=== PATIENT | female | born 1970 | race Caucasian/White ===

== ENCOUNTER 2021-01-06 12:14 | Inpatient (IN) ==
[2021-01-06] MEDS ORDERED: SODIUM CHLORIDE 0.9% 250 ML IV PRN ×2 (12:35→13:25)
[2021-01-06 12:45] LABS: Basophils # (auto) 0.02 K/uL (0-0.2); Basophils % (auto) 0.2 %; Eosinophils # (auto) 0.22 K/uL (0-0.5); Eosinophils % (auto) 1.7 %; Hematocrit (blood only) 37.4 % (37-47); Hemoglobin 12.2 g/dL (12.0-16.0); Immature Granulocytes # (auto) 0.07 K/uL (0.00-0.02); Immature Granulocytes % (auto) 0.5 %; Lymphocytes # (auto) 3.33 K/uL (1.2-3.4); Lymphocytes % (auto) 25.6 %; Mean Corpuscular Hemoglobin 29.6 pg (25-34); Mean Corpuscular Hgb Conc 32.6 g/dL (32-36); Mean Corpuscular Volume 90.8 fL (80-100); Mean Platelet Volume 9.8 fL (7.4-10.4); Monocytes # (auto) 0.86 K/uL (0.11-0.59); Monocytes % (auto) 6.6 %; Neutrophils # (auto) 8.51 K/uL (1.4-6.5); Neutrophils % (auto) 65.4 %; Platelet Count 314 K/uL (130-400); RDW Coefficient of Variation 14.1 % (11.5-14.5); RDW Standard Deviation 46.6 fL (36.4-46.3); Red Blood Count 4.12 M/uL (4.2-5.4); White Blood Count 13.01 K/uL (4.8-10.8)
[2021-01-06 12:46] LABS: iSTAT Creatinine 0.6 mg/dl (0.6-1.3); iSTAT Hemoglobin 12.2 g/dl (12.0-16.0); iSTAT Ionized Calcium 1.16 mmol/l (1.12-1.32); iSTAT Potassium 3.7 mmol/L (3.3-5.0)
--- NOTE | 2021-01-06 13:01 | Emergency Department Note ---
History of Present Illness General Chief complaint: GI Assessment Stated complaint: BLOOD IN STOOL Source: patient and family History of Present Illness Provider complaint: Rectal bleeding Onset (ago): hour(s) Location: abdomen Severity: moderate Pain Consistency: + intermittent Maximum Pain Intensity: 0 Quality: + other (Bright red stool) Relieved By: + none Associated symptoms: + weakness; no chest pain, no cough, no fever/chills, no headaches, no nausea/vomiting and no shortness of breath This is a 50-year-old female who presents with rectal bleeding starting approximately an hour and a half prior to arrival. She had an episode of rectal bleeding of a few ounces. She stated that it was bright red. She stated her stool has been normal color. She denies any melanotic stools. About half hour later she had another episode of rectal bleeding and so they were headed to [facility] for evaluation. Her came here instead as she did not look well. In triage her blood pressure was in the 50s and so she was immediately brought back to the trauma bay. The patient only complains of some fatigue. She denies any fever, chest pain, shortness of breath, vomiting, diarrhea or hematuria. She has had no cough or cold symptoms or known exposure to COVID-19. She did have surgery at [facility] and was discharged from the hospital this past Friday. She stated that she had a double hernia repair in the right inguinal region. She also had a colonoscopy several weeks ago which showed polyps. She did have some mild rectal spotting prior to the colonoscopy. The colonoscopy was a routine test because 2 years ago she had polyps that were removed from her colon. Her aunt has colon cancer. She denies having any abdominal pain today but her stated that earlier she complained of pain to the left lower quadrant. She does state that she had a prior history of diverticulosis. She denies using blood thinners other than a baby aspirin daily. She has been using ibuprofen for pain control after her hernia surgery. She did use 1 today. Home Medications Medication Instructions Recorded Confirmed Type aspirin 81 mg tablet,delayed 81 mg PO DAILY tab 04/13/19 01/06/21 History release cyanocobalamin (vitamin B-12) 1,000 mcg IM MONTHLY ml 04/13/19 01/06/21 History 1,000 mcg/mL injection solution cranberry 1,000 mg PO QAM 01/06/21 01/06/21 History ibuprofen [Motrin] 600 mg PO Q6H PRN 01/06/21 01/06/21 History levothyroxine 137 mcg PO DAILY 01/06/21 01/06/21 History tramadol 50 mg PO DIRECTED PRN 01/06/21 01/06/21 History Allergies Allergy/AdvReac Type Severity Reaction Status Date / Time cefuroxime [From Ceftin] Allergy Hives Verified 01/06/21 14:44 Iodinated Contrast Media Allergy Foot Verified 01/06/21 14:44 [Iodinated Contrast- Oral swelling and IV Dye] levothyroxine AdvReac Unknown NEEDS Verified 01/06/21 14:44 BRAND NAME Past Med/Surg History Medical History Colon polyps Mariella's thyroiditis Papillary carcinoma of thyroid Surgical History History of inguinal hernia repair Social History Smoking Status: Current every day smoker Preferred Language: Finnish Feels Safe at Home: Yes Review of Systems See HPI for pertinent positives & negatives. and A total of 10 systems reviewed and were otherwise negative Physical Exam Vital Signs Vital Signs - 24 hr 01/06/21 12:16 01/06/21 12:38 01/06/21 12:39 Temperature 35.3 C L Temperature Source Temporal Artery Scan Pulse Rate 73 77 Pulse Rate from SpO2 Sensor 77 Pulse Rhythm Regular Pulse Strength Normal Respiratory Rate 20 16 Respiratory Effort / Characteristics Non-Labored Respiratory Depth Normal Respiratory Pattern Regular Blood Pressure 53/37 L 103/51 L Blood Pressure Mean 42 68 Blood Pressure Position Sitting Pulse Oximetry 93 92 92 Oxygen Delivery Method Room Air Room Air Oxygen Flow Rate 3 Sepsis Recent Fever Within 48 Hours No Sepsis New/Unexplained Change in Mental Status N/A Sepsis Action Taken by Nursing No Action Required 01/06/21 12:43 01/06/21 12:45 01/06/21 13:14 Temperature 37 C Temperature Source Rectal Pulse Rate 73 73 Pulse Rate from SpO2 Sensor 73 73 Pulse Rhythm Pulse Strength Respiratory Rate 16 17 Respiratory Effort / Characteristics Respiratory Depth Respiratory Pattern Blood Pressure 111/51 L 101/60 Blood Pressure Mean 71 73 Blood Pressure Position Pulse Oximetry 94 97 Oxygen Delivery Method Oxygen Flow Rate Sepsis Recent Fever Within 48 Hours Sepsis New/Unexplained Change in Mental Status Sepsis Action Taken by Nursing 01/06/21 13:15 01/06/21 13:30 01/06/21 13:45 Temperature Temperature Source Pulse Rate 79 73 74 Pulse Rate from SpO2 Sensor 78 73 77 Pulse Rhythm Pulse Strength Respiratory Rate 19 15 18 Respiratory Effort / Characteristics Respiratory Depth Respiratory Pattern Blood Pressure 101/46 L 92/53 L 105/63 Blood Pressure Mean 64 66 77 Blood Pressure Position Pulse Oximetry 97 97 100 Oxygen Delivery Method Oxygen Flow Rate Sepsis Recent Fever Within 48 Hours Sepsis New/Unexplained Change in Mental Status Sepsis Action Taken by Nursing 01/06/21 13:53 01/06/21 13:54 01/06/21 14:00 Temperature 36.5 C Temperature Source Oral Pulse Rate 75 73 80 Pulse Rate from SpO2 Sensor 73 78 Pulse Rhythm Pulse Strength Respiratory Rate 16 12 18 Respiratory Effort / Characteristics Respiratory Depth Respiratory Pattern Blood Pressure 105/74 105/74 114/63 Blood Pressure Mean 84 84 80 Blood Pressure Position Pulse Oximetry 98 98 90 Oxygen Delivery Method Oxygen Flow Rate 3 Sepsis Recent Fever Within 48 Hours Sepsis New/Unexplained Change in Mental Status Sepsis Action Taken by Nursing 01/06/21 14:14 01/06/21 14:15 01/06/21 14:29 Temperature 36.6 C 36.5 C Temperature Source Oral Oral Pulse Rate 76 76 72 Pulse Rate from SpO2 Sensor 77 Pulse Rhythm Pulse Strength Respiratory Rate 16 15 16 Respiratory Effort / Characteristics Respiratory Depth Respiratory Pattern Blood Pressure 106/71 106/71 111/64 Blood Pressure Mean 82 82 79 Blood Pressure Position Pulse Oximetry 96 94 98 Oxygen Delivery Method Oxygen Flow Rate 3 3 Sepsis Recent Fever Within 48 Hours Sepsis New/Unexplained Change in Mental Status Sepsis Action Taken by Nursing 01/06/21 14:30 01/06/21 14:45 01/06/21 14:59 Temperature 36.7 C Temperature Source Oral Pulse Rate 73 78 77 Pulse Rate from SpO2 Sensor 73 75 Pulse Rhythm Pulse Strength Respiratory Rate 15 17 16 Respiratory Effort / Characteristics Respiratory Depth Respiratory Pattern Blood Pressure 111/64 106/71 105/55 L Blood Pressure Mean 79 82 71 Blood Pressure Position Pulse Oximetry 98 92 95 Oxygen Delivery Method Oxygen Flow Rate 3 Sepsis Recent Fever Within 48 Hours Sepsis New/Unexplained Change in Mental Status Sepsis Action Taken by Nursing 01/06/21 15:59 01/06/21 16:11 01/06/21 16:27 Temperature 36.6 C 36.6 C 36.4 C L Temperature Source Oral Oral Oral Pulse Rate 82 80 80 Pulse Rate from SpO2 Sensor Pulse Rhythm Pulse Strength Respiratory Rate 16 18 16 Respiratory Effort / Characteristics Respiratory Depth Respiratory Pattern Blood Pressure 119/73 119/73 121/64 Blood Pressure Mean 88 88 83 Blood Pressure Position Pulse Oximetry 98 94 98 Oxygen Delivery Method Oxygen Flow Rate 3 3 Sepsis Recent Fever Within 48 Hours Sepsis New/Unexplained Change in Mental Status Sepsis Action Taken by Nursing 01/06/21 16:42 01/06/21 17:12 01/06/21 18:00 Temperature 36.6 C 37.2 C 36.5 C Temperature Source Oral Oral Oral Pulse Rate 80 78 76 Pulse Rate from SpO2 Sensor Pulse Rhythm Pulse Strength Respiratory Rate 16 20 16 Respiratory Effort / Characteristics Respiratory Depth Respiratory Pattern Blood Pressure 124/76 108/72 124/62 Blood Pressure Mean 92 84 82 Blood Pressure Position Pulse Oximetry 96 93 98 Oxygen Delivery Method Oxygen Flow Rate 3 3 Sepsis Recent Fever Within 48 Hours Sepsis New/Unexplained Change in Mental Status Sepsis Action Taken by Nursing Constitutional: Vital signs reviewed. Eyes: Pupils are equal round reactive to light. Conjunctiva are noninjected. ENT: Pharynx is clear without erythema or exudate. Mucous membranes are moist. Neck supple without meningeal signs. Respiratory: Clear to auscultation bilaterally. Breath sounds are equal bilaterally. Cardiovascular: Regular rate and rhythm. No rubs or gallops. GI: Soft, nondistended and nontender. Bowel sounds are present. Incision in right inguinal area intact without signs of erythema or discharge. No sig nificant tenderness in this region. Rectal: No stool is noted. There is dark blood. Musculoskeletal: No peripheral edema. No lower extremity tenderness. Integumentary: No cyanosis. or jaundice. Pale. Neurological: The patient is awake and alert. No focal deficits. Psychiatric: Normal affect. Course Administered Medications Pantoprazole Sodium 40 mg/ (Dextrose) 100 mls @ 20 mls/hr IV Q5H RENETTA Stop: 02/05/21 15:50 Last Admin: 01/06/21 16:17 Dose: 8 mg/hr, 20 mls/hr Documented by: [id number] Discontinued Medications Pantoprazole Sodium 80 mg/ (Dextrose) 120 mls @ 400 mls/hr IV NOW ONE Stop: 01/06/21 15:53 Last Infusion: 01/06/21 16:18 Dose: 0 mls/hr Documented by: [id number] Admin: 01/06/21 15:58 Dose: 400 mls/hr Documented by: [id number] Critical Care Time Critical Care Time: Yes Total Critical Care Time: 95 I have personally spent approximately 95 minutes of critical care time in the direct management of this patient. This includes bedside care, interpretation of diagnostic studies, and testing, discussion with consultants, patient, and family members, and other required patient management activities. These minutes are in excess of all separately billable procedures. Medical Decision Making Differential Diagnosis Anemia, GI bleed, polyp, diverticulosis, diverticulitis, internal hemorrhoids Medical Records Attestation: I reviewed the patient's medical records. I did perform a limited focused review of portions of the patient's old chart on the electronic medical record. The patient had a colonoscopy by Dr. Nguyen on December 12 for high risk surveillance for colon cancer. It showed a 10 mm polyp in the descending colon removed with a hot snare. Resected and retrieved. Clip was placed. Moderate diverticulosis in the sigmoid and descending colon. Internal hemorrhoids. Home Medications Current Medication List: was personally reviewed by me Laboratory Data Attestation: I reviewed the patient's lab results. Result diagrams: 01/06/21 12:26 01/06/21 12:26 Lab Results 01/06/21 01/06/21 01/06/21 Range/Units 12:26 12:26 12:26 WBC 13.01 H (4.8-10.8) K/uL RBC 4.12 L (4.2-5.4) M/uL Hgb 12.2 (12.0-16.0) g/dL POC Hgb (12.0-16.0) g/dl Hct 37.4 (37-47) % POC Hct (37-47) % MCV 90.8 (80-100) fL MCH 29.6 (25-34) pg MCHC 32.6 (32-36) g/dL RDW Std Deviation 46.6 H (36.4-46.3) fL RDW Coeff of Den 14.1 (11.5-14.5) % Plt Count 314 (130-400) K/uL MPV 9.8 (7.4-10.4) fL Immature Gran % (Auto) 0.5 % Neut % (Auto) 65.4 % Lymph % (Auto) 25.6 % Morrill % (Auto) 6.6 % Eos % (Auto) 1.7 % Baso % (Auto) 0.2 % Neut # (Auto) 8.51 H (1.4-6.5) K/uL Lymph # (Auto) 3.33 (1.2-3.4) K/uL Morrill # (Auto) 0.86 H (0.11-0.59) K/uL Eos # (Auto) 0.22 (0-0.5) K/uL Baso # (Auto) 0.02 (0-0.2) K/uL Immature Gran # (Auto) 0.07 H (0.00-0.02) K/uL PT (9.0-12.0) Seconds INR (0.9-1.1) APTT (21.0-31.0) Seconds PTT Ratio POC Sodium (135-144) mmol/L Sodium 142 (136-145) mmol/L POC Potassium (3.3-5.0) mmol/L Potassium 3.5 (3.5-5.1) mmol/L POC Chloride (101-112) mmol/L Chloride 109 H (98-107) mmol/L Carbon Dioxide 30 (21-32) mmol/L POC Total CO2 (24-31) mmol/L Anion Gap 3.0 (3-11) POC Anion Gap (16-25) mmol/L POC BUN (7-18) mg/dl BUN 8 (7-18) mg/dl Creatinine 0.62 (0.6-1.2) mg/dl POC Creatinine (0.6-1.3) mg/dl Est Cr Clr Drug Dosing 120.0 ml/min Est GFR ( Amer) 120.2 ml/min Est GFR (Non-Af Amer) 103.7 ml/min BUN/Creatinine Ratio 12.6 (10-20) Glucose 106 H (70-99) mg/dl POC Glucose (other) (70-99) mg/dl Lactate (0.4-2.0) mmol/L Calcium 8.0 L (8.5-10.1) mg/dl POC Ioniz Calcium Trista (1.12-1.32) mmol/l Total Bilirubin 0.6 (0.2-1) mg/dl AST 11 L (15-37) U/L ALT 16 (12-78) U/L Alkaline Phosphatase 57 (45-117) U/L Troponin I < 0.015 (0-0.045) ng/ml Total Protein 6.5 (6.4-8.2) gm/dl Albumin 2.9 L (3.4-5.0) gm/dl Globulin 3.6 (2.5-4.0) gm/dl Albumin/Globulin Ratio 0.8 L (0.9-2) Lipase 62 L (73-393) U/L POC Stool Occult Blood (Negative) COVID-19 Eval Order SARS-CoV-2 (PCR) (Negative) Blood Type O Positive Blood Type Recheck Antibody Screen NEGATIVE Crossmatch See Detail 01/06/21 01/06/21 01/06/21 Range/Units 12:26 12:33 12:44 WBC (4.8-10.8) K/uL RBC (4.2-5.4) M/uL Hgb (12.0-16.0) g/dL POC Hgb 12.2 (12.0-16.0) g/dl Hct (37-47) % POC Hct 36 L (37-47) % MCV (80-100) fL MCH (25-34) pg MCHC (32-36) g/dL RDW Std Deviation (36.4-46.3) fL RDW Coeff of Den (11.5-14.5) % Plt Count (130-400) K/uL MPV (7.4-10.4) fL Immature Gran % (Auto) % Neut % (Auto) % Lymph % (Auto) % Morrill % (Auto) % Eos % (Auto) % Baso % (Auto) % Neut # (Auto) (1.4-6.5) K/uL Lymph # (Auto) (1.2-3.4) K/uL Morrill # (Auto) (0.11-0.59) K/uL Eos # (Auto) (0-0.5) K/uL Baso # (Auto) (0-0.2) K/uL Immature Gran # (Auto) (0.00-0.02) K/uL PT 9.8 (9.0-12.0) Seconds INR 1.0 (0.9-1.1) APTT 24.1 (21.0-31.0) Seconds PTT Ratio 0.9 POC Sodium 142 (135-144) mmol/L Sodium (136-145) mmol/L POC Potassium 3.7 (3.3-5.0) mmol/L Potassium (3.5-5.1) mmol/L POC Chloride 101 (101-112) mmol/L Chloride (98-107) mmol/L Carbon Dioxide (21-32) mmol/L POC Total CO2 28 (24-31) mmol/L Anion Gap (3-11) POC Anion Gap 18.0 (16-25) mmol/L POC BUN 8 (7-18) mg/dl BUN (7-18) mg/dl Creatinine (0.6-1.2) mg/dl POC Creatinine 0.6 (0.6-1.3) mg/dl Est Cr Clr Drug Dosing ml/min Est GFR ( Amer) ml/min Est GFR (Non-Af Amer) ml/min BUN/Creatinine Ratio (10-20) Glucose (70-99) mg/dl POC Glucose (other) 107 H (70-99) mg/dl Lactate (0.4-2.0) mmol/L Calcium (8.5-10.1) mg/dl POC Ioniz Calcium Trista 1.16 (1.12-1.32) mmol/l Total Bilirubin (0.2-1) mg/dl AST (15-37) U/L ALT (12-78) U/L Alkaline Phosphatase (45-117) U/L Troponin I (0-0.045) ng/ml Total Protein (6.4-8.2) gm/dl Albumin (3.4-5.0) gm/dl Globulin (2.5-4.0) gm/dl Albumin/Globulin Ratio (0.9-2) Lipase (73-393) U/L POC Stool Occult Blood (Negative) COVID-19 Eval Order Covid19 at [facility] SARS-CoV-2 (PCR) (Negative) Blood Type Blood Type Recheck Antibody Screen Crossmatch 01/06/21 01/06/21 01/06/21 Range/Units 12:44 13:20 13:56 WBC (4.8-10.8) K/uL RBC (4.2-5.4) M/uL Hgb (12.0-16.0) g/dL POC Hgb 10.5 L (12.0-16.0) g/dl Hct (37-47) % POC Hct 31 L (37-47) % MCV (80-100) fL MCH (25-34) pg MCHC (32-36) g/dL RDW Std Deviation (36.4-46.3) fL RDW Coeff of Den (11.5-14.5) % Plt Count (130-400) K/uL MPV (7.4-10.4) fL Immature Gran % (Auto) % Neut % (Auto) % Lymph % (Auto) % Morrill % (Auto) % Eos % (Auto) % Baso % (Auto) % Neut # (Auto) (1.4-6.5) K/uL Lymph # (Auto) (1.2-3.4) K/uL Morrill # (Auto) (0.11-0.59) K/uL Eos # (Auto) (0-0.5) K/uL Baso # (Auto) (0-0.2) K/uL Immature Gran # (Auto) (0.00-0.02) K/uL PT (9.0-12.0) Seconds INR (0.9-1.1) APTT (21.0-31.0) Seconds PTT Ratio POC Sodium 142 (135-144) mmol/L Sodium (136-145) mmol/L POC Potassium 3.6 (3.3-5.0) mmol/L Potassium (3.5-5.1) mmol/L POC Chloride 102 (101-112) mmol/L Chloride (98-107) mmol/L Carbon Dioxide (21-32) mmol/L POC Total CO2 26 (24-31) mmol/L Anion Gap (3-11) POC Anion Gap 19.0 (16-25) mmol/L POC BUN 7 (7-18) mg/dl BUN (7-18) mg/dl Creatinine (0.6-1.2) mg/dl POC Creatinine 0.6 (0.6-1.3) mg/dl Est Cr Clr Drug Dosing ml/min Est GFR ( Amer) ml/min Est GFR (Non-Af Amer) ml/min BUN/Creatinine Ratio (10-20) Glucose (70-99) mg/dl POC Glucose (other) 96 (70-99) mg/dl Lactate (0.4-2.0) mmol/L Calcium (8.5-10.1) mg/dl POC Ioniz Calcium Trista 1.02 L (1.12-1.32) mmol/l Total Bilirubin (0.2-1) mg/dl AST (15-37) U/L ALT (12-78) U/L Alkaline Phosphatase (45-117) U/L Troponin I (0-0.045) ng/ml Total Protein (6.4-8.2) gm/dl Albumin (3.4-5.0) gm/dl Globulin (2.5-4.0) gm/dl Albumin/Globulin Ratio (0.9-2) Lipase (73-393) U/L POC Stool Occult Blood (Negative) COVID-19 Eval Order SARS-CoV-2 (PCR) NEGATIVE (Negative) Blood Type Blood Type Recheck O Positive Antibody Screen Crossmatch 01/06/21 01/06/21 Range/Units 17:48 Unknown WBC (4.8-10.8) K/uL RBC (4.2-5.4) M/uL Hgb (12.0-16.0) g/dL POC Hgb (12.0-16.0) g/dl Hct (37-47) % POC Hct (37-47) % MCV (80-100) fL MCH (25-34) pg MCHC (32-36) g/dL RDW Std Deviation (36.4-46.3) fL RDW Coeff of Den (11.5-14.5) % Plt Count (130-400) K/uL MPV (7.4-10.4) fL Immature Gran % (Auto) % Neut % (Auto) % Lymph % (Auto) % Morrill % (Auto) % Eos % (Auto) % Baso % (Auto) % Neut # (Auto) (1.4-6.5) K/uL Lymph # (Auto) (1.2-3.4) K/uL Morrill # (Auto) (0.11-0.59) K/uL Eos # (Auto) (0-0.5) K/uL Baso # (Auto) (0-0.2) K/uL Immature Gran # (Auto) (0.00-0.02) K/uL PT (9.0-12.0) Seconds INR (0.9-1.1) APTT (21.0-31.0) Seconds PTT Ratio POC Sodium (135-144) mmol/L Sodium (136-145) mmol/L POC Potassium (3.3-5.0) mmol/L Potassium (3.5-5.1) mmol/L POC Chloride (101-112) mmol/L Chloride (98-107) mmol/L Carbon Dioxide (21-32) mmol/L POC Total CO2 (24-31) mmol/L Anion Gap (3-11) POC Anion Gap (16-25) mmol/L POC BUN (7-18) mg/dl BUN (7-18) mg/dl Creatinine (0.6-1.2) mg/dl POC Creatinine (0.6-1.3) mg/dl Est Cr Clr Drug Dosing ml/min Est GFR ( Amer) ml/min Est GFR (Non-Af Amer) ml/min BUN/Creatinine Ratio (10-20) Glucose (70-99) mg/dl POC Glucose (other) (70-99) mg/dl Lactate 0.8 (0.4-2.0) mmol/L Calcium (8.5-10.1) mg/dl POC Ioniz Calcium Trista (1.12-1.32) mmol/l Total Bilirubin (0.2-1) mg/dl AST (15-37) U/L ALT (12-78) U/L Alkaline Phosphatase (45-117) U/L Troponin I (0-0.045) ng/ml Total Protein (6.4-8.2) gm/dl Albumin (3.4-5.0) gm/dl Globulin (2.5-4.0) gm/dl Albumin/Globulin Ratio (0.9-2) Lipase (73-393) U/L POC Stool Occult Blood Positive A (Negative) COVID-19 Eval Order SARS-CoV-2 (PCR) (Negative) Blood Type Blood Type Recheck Antibody Screen Crossmatch Imaging Data Radiologist's Impression: Abdomen/Pelvis CT 06/05/21 12:[address] WITHOUT CONTRAST CT DOSE: 787.52 mGy.cm HISTORY: Bloody stool. Left-sided abdominal pain. TECHNIQUE: Multiaxial CT images of the abdomen and pelvis were performed without contrast. A dose lowering technique was utilized adhering to the principles of ALARA. COMPARISON STUDY: None. FINDINGS: There are 2 adjacent focal collections of gas and soft tissue edema/fluid within the right lower quadrant extraperitoneal space proximal to the site of right inguinal hernia repair. These are best seen on images 367 and 375. These measure approximately 3.2 cm. Both of these gas and soft tissue collections abut the undersurface of the cecum and adjacent distal ileal loops. Therefore, these could be secondary to the postoperative change from the recent right inguinal hernia repair. However, developing abscesses or less likely enterocutaneous fistulas or microperforation with the adjacent bowel loops could also have a similar appearance. Consider one month abdomen and pelvis CT follow- up to ensure resolution. There is a small amount of fluid, gas, and fat stranding within the subcutaneous right inguinal region also suggesting postoperative change from the recent hernia repair. Normal appendix. Mild inflammatory change associated with a single diverticulum within the hepatic flexure of the colon on image 118 consistent with a mild acute diverticulitis. There is focal mild colonic wall thickening at this location. No perforation or abscess at this location. Multiple additional colonic diverticula are identified. The bladder is unremarkable. The uterus is surgically absent. No dilated loops of bowel to suggest an obstruction. A few small fat-containing midline ventral hernias are noted. No retroperitoneal lymphadenopathy. Normal caliber abdominal aorta. 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 No renal stones or hydronephrosis. No suspicious lytic or blastic osseous lesions. The unenhanced liver, gallbladder, spleen, adrenal glands, and pancreas unremarkable. No renal stones or hydronephrosis. Linear density at the right lower lobe consistent with subsegmental atelectasis. There is a 5 mm subpleural nodule within the left lower lobe on image 31. Small patchy groundglass densities within the base of the left lower lobe suggesting a resolving pneumonitis. This could be secondary to aspiration. IMPRESSION: 1. Mild acute diverticulitis at the hepatic flexure of the colon. No perforation or abscess. 2. There are 2 adjacent focal collections of gas and soft tissue edema/fluid within the right lower quadrant extraperitoneal space proximal to the site of right inguinal hernia repair. These measure approximately 3.2 cm. Both of these gas and soft tissue collections abut the undersurface of the cecum and adjacent distal ileal loops. These favor postoperative change from the recent right inguinal hernia repair. However, developing abscesses or less likely enterocutaneous fistulas or microperforation with the adjacent bowel loops could also have a similar appearance. Consider one month abdomen and pelvis CT follow- up to ensure resolution. 3. There is a small amount of fluid, gas, and fat stranding within the subcutaneous right inguinal region also suggesting postoperative change from the recent hernia repair. 4. A 5 mm indeterminate pulmonary nodule within the left lower lobe. Please refer to the chart below for recommended follow-up. 5. Small patchy groundglass densities within the base of the left lower lobe suggesting a resolving pneumonitis. This could be secondary to aspiration. Please refer to below summary of Fleischner criteria recommendations for follow- up of incidental CT nodules (Ravin Sheldon, Guidelines for management of small pulmonary nodules detected on CT scans: A statement from the Fleischner Society, Radiology 237: [phone].) SOLID NODULES Solitary nodule size: <6 mm * Low risk patients: no follow-up needed * high risk patients: optional CT at 12 months Solitary nodule size: 6-8 mm * Low risk patients: follow-up at 6-12 months, then consider further follow-up at 18-24 months * high risk patients: initial follow-up CT at 6-12 months and then at 18-24 months if no change Solitary nodule size: >8 mm * either low or high risk patients - consider follow-up CT at 3 months, and/or CT-PET, and/or biopsy Multiple nodules size: <6 mm * Low risk patients: no routine follow-up * high risk patients: optional CT at 12 months Multiple nodules size: 6-8 mm * Low risk patients: follow-up at 3-6 months, then consider further follow-up at 18-24 months * high risk patients: follow-up at 3-6 months, then at 18-24 months if no change Multiple nodules size: >8 mm * Low risk patients: follow-up at 3-6 months, then consider further follow-up at 18-24 months * high risk patients: follow-up at 3-6 months, then at 18-24 months if no change Note: newly detected indeterminate nodule in persons 35 years of age or older. * Low risk patients: minimal or absent history of smoking and/or other known risk factors * high risk patients: history of smoking or of other known risk factors (e.g. first degree relative with lung cancer, or exposure to asbestos, radon, uranium) * if a nodule up to 8 mm is partly solid or is ground glass further follow-up is required after 24 months to exclude possible slow growing adenocarcinoma (CHRISTINA) SUBSOLID NODULES Solitary pure ground-glass nodule * nodule size <6 mm - no CT follow-up required * nodule size >=6 mm - follow-up CT at 6-12 months, then every 2 years until 5 years Solitary part-solid nodule * nodule size <6 mm - no CT follow-up required * nodule size >=6 mm - follow-up CT at 3-6 months. If unchanged, and solid component remains <6 mm, then annual follow-up for 5 years Multiple subsolid nodules * nodule size <6 mm - follow-up CT at 3-6 months, consider further follow-up at 2 and 4 years if stable * nodule size >=6 mm - follow-up CT at 3-6 months, subsequent management based on the most suspicious nodule(s) ACT 112: Negative or not required by law. Electronically signed by: Fernando Carrion M.D. 01/06/2021 1:52 PM Chest X-Ray 01/06/21 12:35 XR chest 1V portable HISTORY: GI bleed. COMPARISON: None. FINDINGS: Cardiac silhouette is top normal in size. No focal lung consolidations to suggest pneumonia. No evidence for pulmonary edema. No pleural effusions. No pneumothorax. Questionable 7 mm nodular density at the left lung apex is likely due to the overlapping scapula. Surgical clips at the thyroid bed. IMPRESSION: 1. No acute process within the chest. 2. A questionable 7 mm nodular density at the left lung apex is likely due to the overlapping scapula. Consider follow-up nonemergent PA and lateral views of the chest for further evaluation. ACT 112: Negative or not required by law. Electronically signed by: Fernando Carrion M.D. 01/06/2021 2:25 PM ECG Data Attestation: I personally reviewed and interpreted this ECG as follows: Indication: + other (Hypotension) Rate (beats per minute): 81 Rhythm: + normal sinus ECG ST segments: + Nonspecific ST abnormalities ECG Findings: no PVCs MDM Narrative I was called in emergently to see this patient by the nurse. Apparently she was hypotensive in triage with a systolic blood pressure in the 50s. I did evaluate the patient as noted above. She is presenting with 2 episodes of rectal bleeding today. She also had some left-sided abdominal pain which is now res olved. IV access was established. I did place an order for continuous cardiac monitoring. The monitor showed normal sinus rhythm at a rate of 80 bpm. I did order and personally review the patient's 12-lead EKG as described above. She has some nonspecific ST changes without acute ischemia. I did order and personally reviewed the images of the patient's chest x-ray as described above. There is no evidence of pneumonia. I did order and review the patient's blood work as noted in the electronic medical record. I-STAT labs demonstrate a hemoglobin of 12.2. I did order a type and cross. I did obtain informed consent for blood transfusion. I did repeat a hemoglobin 40.5 minutes after the first and it dropped to 10.5. She had received only 300 cc of normal saline in the emergency department. Due to her active bleeding I did order transfusion of the crossmatched blood. She was started on blood transfusion in the ED. I did order a CT of the abdomen and pelvis. I did review the images myself as well as the radiology report as described above. She appears to have mostly postop c hanges in the right lower quadrant. She does have signs of mild diverticulitis at the hepatic flexure. I did discuss case with Dr. Salazar of gastroenterology. He recommended patient be transferred to a tertiary care center for possible IR. I did speak to Dr. Tuttle of gastroenterology at [facility]. He stated that a colonoscopy should be performed prior to IR. Also there were no medical or ICU beds available and that the patient would have to wait until a bed was availa ble. The ED was described as "compressed. I did later obtain the CT results which demonstrated mild diverticulitis to the hepatic flexure. I did speak to Dr. Salazar again. He stated that he would consult on the patient if the patient was admitted here. He stated that a colonoscopy would be more risky given the diverticulitis. I did speak to Dr. Tuttle again in the transfer center. They reiterated that no ICU or floor beds were available. Dr. Tuttle stated that a flexible sigmoidoscopy could be performed since the diverticulitis was in the hepatic flexure. The patient will be hospitalized here as she cannot be transferred to [facility] at this time. She is currently stable with a blood pressure 106/71. Heart rate 76. She is sitting upright in the bed and her color has returned. She is getting her first transfusion. The nurse stated that her blood pressure and clinical condition had improved even prior to her getting the blood. I did update the patient and her about the situation. The patient's was very upset that we were not doing a colonoscopy right away. He felt that we needed to diagnose the bleeding issue and that we were "doing nothing. "He requested that either the GI doctor come do a scope or we transfer her to [facility]. I did call back Dr. Salazar who stated that he did not feel she needed an emergent procedure. If they felt more comfortable being transferred he was agreeable. I did talk to geriatric case manager. She stated that the patient could only go to [facility] or [facility] due to her insurance. All other hospitals are out of network and would incur costs. I did call Dr. Bañuelos of GI and , who is the ICU attending, at [facility]. I did have a long discussion with them regarding patient and her care here as well as the findings on her testing. Dr. Bañuelos felt that she did not need an emergent colonoscopy and would recommend 12 to 24 hours before scoping her. She also recommended covering her with Protonix in case this is a brisk upper GI bleed and recommended upper endoscopy as well. They also stated that they were unable to take the patient in transfer as they had no ICU beds in the ED was full with over 72 patients. They were happy to put her on a wait list for transfer. I did speak to the patient and her again. They did not wish to be transferred out of network to [place]. They are agreeable to having her stay here. I did put the patient on a Protonix drip with an initial bolus. I did speak to Dr. Salazar again who recommended the patient be placed on clear liquids and antibiotics. He recommended that the inpatient team obtain an H&H at 7 PM. Should her hemoglobin still be dropping he would then scope her at that time. I did discuss these recommendations with the hospitalist team and the patient was admitted to the hospital. I did also discuss the plan with the patient and her . Her blood pressure now is 120 systolic. The patient was seen by the hospitalist team. Her blood pressure is currently 124/76. She was transferred to the floor in stable condition. Last BP in the emergency department was 124/62 with a heart rate of 76. Impression & Plan Acute GI bleeding, Diverticulitis, Anemia due to acute blood loss, Acute hypote nsion Discharge Plan Visit Data Chief Complaint: GI Assessment Stated Complaint: BLOOD IN STOOL ED Provider: Yahir Ward Discharge Problem: Acute GI bleeding, Diverticulitis, Anemia due to acute blood loss, Acute hypot ension Patient Disposition: Admitted As Inpatient Discharge Instructions Interventions: ED Discharge Assessment Last Done: 01/06/21 18:22 Forms Stand Alone Forms: My [facility] Prescriptions Prescriptions: No Action aspirin 81 mg tablet,delayed release (DR/EC) 81 mg PO DAILY RF: 0 cyanocobalamin (vitamin B-12) 1,000 mcg/mL solution 1,000 mcg IM MONTHLY RF: 0 tramadol 50 mg tablet 50 mg PO DIRECTED PRN (Reason: Pain) RF: 0 ibuprofen [Motrin] 600 mg Tablet 600 mg PO Q6H PRN (Reason: Pain) RF: 0 cranberry 500 mg Capsule 1,000 mg PO QAM RF: 0 levothyroxine 137 mcg tablet 137 mcg PO DAILY RF: 0 Referrals Referrals: Flaquito Solis MD [Primary Care Provider] -
[2021-01-06 13:04] LABS: Alanine Aminotransferase 16 U/L (12-78); Albumin Level 2.9 gm/dl (3.4-5.0); Aspartate Aminotransferase 11 U/L (15-37); BUN Creatinine Ratio 12.6 (10-20); Blood Urea Nitrogen 8 mg/dl (7-18); Carbon Dioxide 30 mmol/L (21-32); Chloride 109 mmol/L (98-107); Est GFR (African American) 120.2 ml/min; Est GFR (Non-African American) 103.7 ml/min; Glucose 106 mg/dl (70-99); Lipase 62 U/L (73-393); Potassium 3.5 mmol/L (3.5-5.1); Sodium 142 mmol/L (136-145)
[2021-01-06 13:05] LABS: Partial Thromboplastin Ratio 0.9; Partial Thromboplastin Time 24.1 Seconds (21.0-31.0); Prothrombin Time 9.8 Seconds (9.0-12.0)
[2021-01-06 13:09] LABS: Albumin Globulin Ratio 0.8 (0.9-2); Alkaline Phosphatase 57 U/L (45-117); Bilirubin,Total 0.6 mg/dl (0.2-1); Globulin 3.6 gm/dl (2.5-4.0); Total Protein 6.5 gm/dl (6.4-8.2); Troponin I < 0.015 ng/ml (0-0.045)
[2021-01-06 13:35] LABS: iSTAT Creatinine 0.6 mg/dl (0.6-1.3); iSTAT Hemoglobin 10.5 g/dl (12.0-16.0); iSTAT Ionized Calcium 1.02 mmol/l (1.12-1.32); iSTAT Potassium 3.6 mmol/L (3.3-5.0)
--- NOTE | 2021-01-06 13:54 | CT Scan Report ---
ABDOMEN AND PELVIS CT WITHOUT CONTRAST CT DOSE: 787.52 mGy.cm HISTORY: Bloody stool. Left-sided abdominal pain. TECHNIQUE: Multiaxial CT images of the abdomen and pelvis were performed without contrast. A dose lo wering technique was utilized adhering to the principles of ALARA. COMPARISON STUDY: None. FINDINGS: There are 2 adjacent focal collections of gas and soft tissue edema/fluid within the right lower quadrant extraperitoneal space proximal to the site of right inguinal hernia repair. These are best seen on images 367 and 375. These measure approximately 3.2 cm. Both of these gas and soft tissu e collections abut the undersurface of the cecum and adjacent distal ileal loops. Therefore, these co uld be secondary to the postoperative change from the recent right inguinal hernia repair. However, d eveloping abscesses or less likely enterocutaneous fistulas or microperforation with the adjacent bow el loops could also have a similar appearance. Consider one month abdomen and pelvis CT follow-up to ensure resolution. There is a small amount of fluid, gas, and fat stranding within the subcutaneous r ight inguinal region also suggesting postoperative change from the recent hernia repair. Normal appen kiya. Mild inflammatory change associated with a single diverticulum within the hepatic flexure of the colon on image 118 consistent with a mild acute diverticulitis. There is focal mild colonic wall thi ckening at this location. No perforation or abscess at this location. Multiple additional colonic div erticula are identified. The bladder is unremarkable. The uterus is surgically absent. No dilated loo ps of bowel to suggest an obstruction. A few small fat-containing midline ventral hernias are noted. No retroperitoneal lymphadenopathy. Normal caliber abdominal aorta. 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 No renal stones or hydronephrosis. No suspicious lytic o r blastic osseous lesions. The unenhanced liver, gallbladder, spleen, adrenal glands, and pancreas un remarkable. No renal stones or hydronephrosis. Linear density at the right lower lobe consistent with subsegmental atelectasis. There is a 5 mm subpleural nodule within the left lower lobe on image 31. Small patchy groundglass densities within the base of the left lower lobe suggesting a resolving pneu monitis. This could be secondary to aspiration. IMPRESSION: 1. Mild acute diverticulitis at the hepatic flexure of the colon. No perforation or abscess. 2. There are 2 adjacent focal collections of gas and soft tissue edema/fluid within the right lower q uadrant extraperitoneal space proximal to the site of right inguinal hernia repair. These measure tigre roximately 3.2 cm. Both of these gas and soft tissue collections abut the undersurface of the cecum a nd adjacent distal ileal loops. These favor postoperative change from the recent right inguinal herni a repair. However, developing abscesses or less likely enterocutaneous fistulas or microperforation w ith the adjacent bowel loops could also have a similar appearance. Consider one month abdomen and pel vis CT follow-up to ensure resolution. 3. There is a small amount of fluid, gas, and fat stranding within the subcutaneous right inguinal re gion also suggesting postoperative change from the recent hernia repair. 4. A 5 mm indeterminate pulmonary nodule within the left lower lobe. Please refer to the chart below for recommended follow-up. 5. Small patchy groundglass densities within the base of the left lower lobe suggesting a resolving p neumonitis. This could be secondary to aspiration. Please refer to below summary of Fleischner criteria recommendations for follow-up of incidental CT n odules (Ravin Sheldon, Guidelines for management of small pulmonary nodules detected on CT scans: A sta tement from the Fleischner Society, Radiology 237: [phone].) SOLID NODULES Solitary nodule size: <6 mm * Low risk patients: no follow-up needed * high risk patients: optional CT at 12 months Solitary nodule size: 6-8 mm * Low risk patients: follow-up at 6-12 months, then consider further follow-up at 18-24 months * high risk patients: initial follow-up CT at 6-12 months and then at 18-24 months if no change Solitary nodule size: >8 mm * either low or high risk patients - consider follow-up CT at 3 months, and/or CT-PET, and/or biopsy Multiple nodules size: <6 mm * Low risk patients: no routine follow-up * high risk patients: optional CT at 12 months Multiple nodules size: 6-8 mm * Low risk patients: follow-up at 3-6 months, then consider further follow-up at 18-24 months * high risk patients: follow-up at 3-6 months, then at 18-24 months if no change Multiple nodules size: >8 mm * Low risk patients: follow-up at 3-6 months, then consider further follow-up at 18-24 months * high risk patients: follow-up at 3-6 months, then at 18-24 months if no change Note: newly detected indeterminate nodule in persons 35 years of age or older. * Low risk patients: minimal or absent history of smoking and/or other known risk factors * high risk patients: history of smoking or of other known risk factors (e.g. first degree relative with lung cancer, or exposure to asbestos, radon, uranium) * if a nodule up to 8 mm is partly solid or is ground glass further follow-up is required after [address] to exclude possible slow growing adenocarcinoma (CHRISTINA) SUBSOLID NODULES Solitary pure ground-glass nodule * nodule size <6 mm - no CT follow-up required * nodule size >=6 mm - follow-up CT at 6-12 months, then every 2 years until 5 years Solitary part-solid nodule * nodule size <6 mm - no CT follow-up required * nodule size >=6 mm - follow-up CT at 3-6 months. If unchanged, and solid component remains <6 mm, then annual follow-up for 5 years Multiple subsolid nodules * nodule size <6 mm - follow-up CT at 3-6 months, consider further follow-up at 2 and 4 years if sta ble * nodule size >=6 mm - follow-up CT at 3-6 months, subsequent management based on the most suspiciou s nodule(s) ACT 112: Negative or not required by law. Electronically signed by: Fernando Carrion M.D. 01/06/2021 1:52 PM
--- NOTE | 2021-01-06 14:26 | XRay Report ---
XR chest 1V portable HISTORY: GI bleed. COMPARISON: None. FINDINGS: Cardiac silhouette is top normal in size. No focal lung consolidations to suggest pneumonia . No evidence for pulmonary edema. No pleural effusions. No pneumothorax. Questionable 7 mm nodular d ensity at the left lung apex is likely due to the overlapping scapula. Surgical clips at the thyroid bed. IMPRESSION: 1. No acute process within the chest. 2. A questionable 7 mm nodular density at the left lung apex is likely due to the overlapping scapula . Consider follow-up nonemergent PA and lateral views of the chest for further evaluation. ACT 112: Negative or not required by law. Electronically signed by: Fernando Carrion M.D. 01/06/2021 2:25 PM
--- NOTE | 2021-01-06 15:13 | History & Physical Report ---
Date of Service January 06, 2021 Assessment & Plan (1) Acute GI bleeding: -Admit to PCU, see HPI regarding attempt to transfer to tertiary care centers. -Acute bright red bloody bowel movements x1 day -Pt presented to the ER with BP of 50s/30s, received NSS 300 mL and transfused 2 units PRBCs. -BP has remained in low 100s/70s since then, monitor -Consult GI, Dr. Salazar-allow clear liquids tonight, recheck H&H at 1900, if drops then will scope tonight, otherwise plan on scope tomorrow, attempt colonoscopy but may only be able to do flexible sigmoidoscopy -Last hemoglobin of 12.2, next recheck at 1900 -PPI bolus and gtt started in the ER, possible upper GIB with hx of using motrin s/p hernia repair on 01/03. -COVID-19 neg (2) Diverticulitis: -Start IV cipro/flagyl to treat possible diverticulitis as seen on CT abd/pelvis. -Follow blood cultures -WBC = 13 k, afebrile - Check lactate (3) History of inguinal hernia repair: - S/p right inguinal hernia repair on 01/03/2021 at [facility] by Dr. Blandon - CT abd reviewed, noted questionable abscess formation, will monitor, antibiotics IV, afebrile, WBC of 13 k can be reactive from acute bleed. (4) Colon polyps: - Hx of such, removed during colonoscopy done in December 2020. - Dr. Nguyen at [facility] on 12/12/2020. She had a 10 mm polyp in the descending colon which was semipedunculated, removed. A hemostatic clip was placed successfully to prevent further bleeding after the polypectomy. There was no bleeding at the end of this procedure there were multiple small and large mouth diverticula in the sigmoid colon and descending colon. Moderate internal hemorrhoids seen on retroflexion. (5) Hypothyroidism, postablative: - S/p papillary thyroid cancer and ablation DVT ppx: - teds, no chemical anticoagulation secondary to GI bleed as above CODE: Full code Dispo: From home, likely to remain in the hospital x 1-2 days History of Present Illness Primary Care Provider: Flaquito Solis MD This is a 50 yo F with PMhx of recent right inguinal hernia repair on 01/03/2021 at [facility] by JOVANNA Jamison, status post papillary thyroid carcinoma with postoperative hypothyroidism, pernicious anemia, factor V Leiden carrier, B12 deficiency who presents to the ER with acute GI bleed. Patient with significant bright red blood per rectum and bowel movements started today. She had been having increased abdominal pain associated with the bleeding. Pt had been using tylenol and tramadol immediately after her hernia surgery this past week. After tramadol ran out, she was then given a prescription for motrin 600 mg Q6H prn for pain. Upon presentation to the ER she had a blood pressure 53/37, but this was with standing up, otherwise her blood pressure has remained 105/70. She received NSS 300 mL and is being transfused 2 units PRBCs. Heart rate has remained in the 70s. Once in the ER, her acute bleeding prompted possible transfer to [facility] for possible IR procedure. The case was discussed between the ER physician at [facility] and Dr. Tuttle at [facility] and unfortunately there is not a bed available for the patient there, and they would have requested a colonoscopy prior to an IR procedure. Patient does have diverticulitis as seen on her CT abdominal scan here at [facility], so again was asked if she could be transferred to [facility] due to unlikely ability to perform full colonoscopy, Dr. Tuttle has requested that we keep the patient in had GI attempt to perform a flexible sigmoidoscopy and stabilize the patient. [facility] was also contacted for possible transfer but they do not have any beds available either and have more than 70 people in their ER waiting room. She recently had a colonoscopy done by Dr. Nguyen at [facility] on 12/12/2020. She had a 10 mm polyp in the descending colon which was semipedunculated, removed. A hemostatic clip was placed successfully to prevent further bleeding after the polypectomy. There was no bleeding at the end of this procedure there were multiple small and large mouth diverticula in the sigmoid colon and descending colon. Moderate internal hemorrhoids seen on retroflexion. Allergies Allergy/AdvReac Type Severity Reaction Status Date / Time cefuroxime [From Ceftin] Allergy Hives Verified 01/06/21 14:44 Iodinated Contrast Media Allergy Foot Verified 01/06/21 14:44 [Iodinated Contrast- Oral swelling and IV Dye] levothyroxine AdvReac Unknown NEEDS Verified 01/06/21 14:44 BRAND NAME Home Medications Medication Instructions Recorded Confirmed Type aspirin 81 mg tablet,delayed 81 mg PO DAILY tab 04/13/19 01/06/21 History release cyanocobalamin (vitamin B-12) 1,000 mcg IM MONTHLY ml 04/13/19 01/06/21 History 1,000 mcg/mL injection solution cranberry 1,000 mg PO QAM 01/06/21 01/06/21 History ibuprofen [Motrin] 600 mg PO Q6H PRN 01/06/21 01/06/21 History levothyroxine 137 mcg PO DAILY 01/06/21 01/06/21 History tramadol 50 mg PO DIRECTED PRN 01/06/21 01/06/21 History Past Med/Surg History Medical History Colon polyps Mariella's thyroiditis Papillary carcinoma of thyroid Surgical History History of inguinal hernia repair Social History Smoking Status: Current every day smoker Cigarettes Per Day: 10; Do You Dip or Chew Tobacco: No; Tobacco Cessation Education Requested by Patient: No Hx Alcohol Use: No Hx Substance Use: No Preferred Language: [place] Korean Communication Ability: Effective Director Medical Required: No Beliefs That Will Affect Care: None Current Living Situation: Spouse Other Information That Helps Us Care for You: No Feels Safe at Home: Yes Assistive Devices: Denture - Upper Review of Systems Review of Systems: All systems reviewed & are unremarkable except as noted in HPI & below Please see attending ROS. Physical Exam Physical Exam: Please see attending PE. Constitutional: well developed, well nourished and comfortable Eyes: PERRL and reactive pupils Neck: normal visual inspection and trachea midline Respiratory: normal respiratory effort, lungs clear to auscultation Cardiovascular: Rate/Rhythm: regular rate and regular rhythm Heart Sounds: normal S1 and normal S2 Gastrointestinal (Abdomen): Inspection/Auscultation: abdomen normal to inspection and normal bowel sounds Percussion/Palpation: abdomen soft Right inguinal hernia repair site healing ok. No obvious erythema or drainage seen. Results & Data Results & Data ([facility]) Vital Signs (Past 12 Hours) Vital Signs Temp Pulse Resp BP Pulse Ox 01/06/21 14:59 36.7 C 77 16 105/55 L 95 01/06/21 14:45 78 17 106/71 92 01/06/21 14:30 73 15 111/64 98 01/06/21 14:29 36.5 C 72 16 111/64 98 01/06/21 14:15 76 15 106/71 94 01/06/21 14:14 36.6 C 76 16 106/71 96 01/06/21 14:00 80 18 114/63 90 01/06/21 13:54 73 12 105/74 98 01/06/21 13:53 36.5 C 75 16 105/74 98 01/06/21 13:45 74 18 105/63 100 01/06/21 13:30 73 15 92/53 L 97 01/06/21 13:15 79 19 101/46 L 97 01/06/21 13:14 73 17 101/60 97 01/06/21 12:45 73 16 111/51 L 94 01/06/21 12:43 37 C 01/06/21 12:39 92 01/06/21 12:38 77 16 103/51 L 92 01/06/21 12:16 35.3 C L 73 20 53/37 L 93 Diagnostic Findings Abdomen/Pelvis CT 01/06/21 12:[address] WITHOUT CONTRAST CT DOSE: 787.52 mGy.cm HISTORY: Bloody stool. Left-sided abdominal pain. TECHNIQUE: Multiaxial CT images of the abdomen and pelvis were performed without contrast. A dose lowering technique was utilized adhering to the principles of ALARA. COMPARISON STUDY: None. FINDINGS: There are 2 adjacent focal collections of gas and soft tissue edema/fluid within the right lower quadrant extraperitoneal space proximal to the site of right inguinal hernia repair. These are best seen on images 367 and 375. These measure approximately 3.2 cm. Both of these gas and soft tissue collections abut the undersurface of the cecum and adjacent distal ileal loops. Therefore, these could be secondary to the postoperative change from the recent right inguinal hernia repair. However, developing abscesses or less likely enterocutaneous fistulas or microperforation with the adjacent bowel loops could also have a similar appearance. Consider one month abdomen and pelvis CT follow-up to ensure resolution. There is a small amount of fluid, gas, and fat stranding within the subcutaneous right inguinal region also suggesting pos toperative change from the recent hernia repair. Normal appendix. Mild inflammatory change associated with a single diverticulum within the hepatic flexure of the colon on image 118 consistent with a mild acute diverticulitis. There is focal mild colonic wall thickening at this location. No perforation or abscess at this location. Multiple additional colonic diverticula are identified. The bladder is unremarkable. The uterus is surgically absent. No dilated loops of bowel to suggest an obstruction. A few small fat-containing midline ventral hernias are noted. No retroperitoneal lymphadenopathy. Normal caliber abdominal aorta. 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 No renal stones or hydronephrosis. No suspicious lytic or blastic osseous lesions. The unenhanced liver, gallbladder, spleen, adrenal glands, and pancreas unremarkable. No renal stones or hydronephrosis. Linear density at the right lower lobe consistent with subsegmental atelectasis. There is a 5 mm subpleural nodule within the left lower lobe on image 31. Small patchy groundglass densities within the base of the left lower lobe suggesting a resolving pneumonitis. This could be secondary to aspiration. IMPRESSION: 1. Mild acute diverticulitis at the hepatic flexure of the colon. No perforation or abscess. 2. There are 2 adjacent focal collections of gas and soft tissue edema/fluid within the right lower quadrant extraperitoneal space proximal to the site of right inguinal hernia repair. These measure approximately 3.2 cm. Both of these gas and soft tissue collections abut the undersurface of the cecum and adjacent distal ileal loops. These favor postoperative change from the recent right inguinal hernia repair. However, developing abscesses or less likely enterocutan eous fistulas or microperforation with the adjacent bowel loops could also have a similar appearance. Consider one month abdomen and pelvis CT follow-up to ensure resolution. 3. There is a small amount of fluid, gas, and fat stranding within the subcutaneous right inguinal region also suggesting postoperative change from the recent hernia repair. 4. A 5 mm indeterminate pulmonary nodule within the left lower lobe. Please refer to the chart below for recommended follow-up. 5. Small patchy groundglass densities within the base of the left lower lobe suggesting a resolving pneumonitis. This could be secondary to aspiration. ACT 112: Negative or not required by law. Electronically signed by: Fernando Carrion M.D. 01/06/2021 1:52 PM Chest X-Ray 01/06/21 12:35 XR chest 1V portable HISTORY: GI bleed. COMPARISON: None. FINDINGS: Cardiac silhouette is top normal in size. No focal lung consolidations to suggest pneumonia. No evidence for pulmonary edema. No pleural effusions. No pneumothorax. Questionable 7 mm nodular density at the left lung apex is likely due to the overlapping scapula. Surgical clips at the thyroid bed. IMPRESSION: 1. No acute process within the chest. 2. A questionable 7 mm nodular density at the left lung apex is likely due to the overlapping scapula. Consider follow-up nonemergent PA and lateral views of the chest for further evaluation. ACT 112: Negative or not required by law. Electronically signed by: Fernando Carrion M.D. 01/06/2021 2:25 PM ECG Additional Comments: 06-JAN-2021 12:29:09 [facility]-EDSTAT ROUTINE RETRIEVAL Normal sinus rhythm Nonspecific ST abnormality Abnormal ECG No previous ECGs available 25mm/s 10mm/mV 150Hz 9.0.9 12SL 241 SHERRON: 3 Referred by: REFERRED SELF Unconfirmed Vent. rate 81 BPM HI interval 192 ms QRS duration 88 ms QT/QTc 390/453 ms Code Status & VTE Plan Code Status Full Code
[2021-01-06] MEDS ORDERED: PANTOprazole 80 MG in DEXTROSE 5% 100 ML IV ONE (15:36)
[2021-01-06] MEDS ORDERED: PANTOPRAZOLE BOLUS/DRIP 1 EA IV STA (15:36)
[2021-01-06] MEDS: PANTOprazole 40 MG in DEXTROSE 5% 100 ML IV SCH ×2 (16:17→20:33)
[2021-01-06] MEDS ORDERED: ONDANSETRON INJ 2 MG/ML 2 ML VIAL IV PRN (18:52)
[2021-01-06] MEDS ORDERED: LAVAGE SOLUTION 4000ML PO SCH (20:00)
[2021-01-06] MEDS: CIPROFLOXACIN / D5W 400 MG/200 ML BAG IV SCH (20:38)
[2021-01-06] MEDS: metroNIDAZOLE 500 MG/100 ML BAG IV SCH (20:39)
--- NOTE | 2021-01-06 20:50 | Hospitalist Progress Note ---
Date of Service January 06, 2021 Assessment & Plan Admission and Anticipated Discharge Date Admission Date: January 06, 2021 Subjective Seen and examined the [id number] who recently had polypectomy and couple of few days ago had right inguinal repair At [facility] presents with Bright red blood per rectum. wanted her to take to [facility] but as she seemed almost passed out and brought here. In the ER SBP in 50's but soon improved . hb 12. After that through out she has been hemodynamically stable. Ct scan showed mild diverticulitis at hepatic flexure of colon.Husbanded wanted to transfer to [facility]. Initially Gi also wanted to transfer to [facility] for possible IR. But [facility] wanted patient to be stabilized and if required to do flexible sigmoidoscopy here as they currently don't have beds. wanted to transfer to [facility] but [facility] also not accepted as they are busy too. Received two units prbc in ER. GI to repeat hb at 7pm and if hb dropping to do procedure tonight otherwise in am.On PPI drip. Fluids. wanted to monitor patient in ICU and to check Blood pressure q 15 minutes. ICU aware.As patient is currently hemodynamically stable, Will monitor in tele and if any change in condition will transfer to ICU. Results & Data Results & Data ([facility]) Vital Signs (Past 12 Hours) Vital Signs Temp Pulse Pulse Resp BP BP Pulse Ox 01/06/21 19:26 37.2 C 77 16 120/75 90 01/06/21 18:45 36.8 C 76 16 106/67 90 01/06/21 18:00 36.5 C 76 16 124/62 98 01/06/21 17:12 37.2 C 78 20 108/72 93 01/06/21 16:42 36.6 C 80 16 124/76 96 01/06/21 16:27 36.4 C L 80 16 121/64 98 01/06/21 16:11 36.6 C 80 18 119/73 94 01/06/21 15:59 36.6 C 82 16 119/73 98 01/06/21 14:59 36.7 C 77 16 105/55 L 95 01/06/21 14:45 78 17 106/71 92 01/06/21 14:30 73 15 111/64 98 01/06/21 14:29 36.5 C 72 16 111/64 98 01/06/21 14:15 76 15 106/71 94 01/06/21 14:14 36.6 C 76 16 106/71 96 01/06/21 14:00 80 18 114/63 90 01/06/21 13:54 73 12 105/74 98 01/06/21 13:53 36.5 C 75 16 105/74 98 01/06/21 13:45 74 18 105/63 100 01/06/21 13:30 73 15 92/53 L 97 01/06/21 13:15 79 19 101/46 L 97 01/06/21 13:14 73 17 101/60 97 01/06/21 12:45 73 16 111/51 L 94 01/06/21 12:43 37 C 01/06/21 12:39 92 01/06/21 12:38 77 16 103/51 L 92 01/06/21 12:16 35.3 C L 73 20 53/37 L 93
[2021-01-06 21:00] LABS: Hematocrit (blood only) 40.9 % (37-47); Hemoglobin 13.6 g/dL (12.0-16.0)
[2021-01-06] MEDS: D5W AND NSS 1,000 ML IV SCH (21:40)
[2021-01-07] MEDS: PANTOprazole 40 MG in DEXTROSE 5% 100 ML IV SCH ×2 (01:34→06:23)
[2021-01-07] MEDS: D5W AND NSS 1,000 ML IV SCH ×3 (02:02→14:02)
[2021-01-07] MEDS: metroNIDAZOLE 500 MG/100 ML BAG IV SCH ×3 (04:11→19:25)
[2021-01-07] MEDS: LEVOTHYROXINE SODIUM 137 MCG TABLET PO SCH ×2 (04:15→07:58)
[2021-01-07 04:43] LABS: Hematocrit (blood only) 37.3 % (37-47); Hemoglobin 12.6 g/dL (12.0-16.0); Mean Corpuscular Hemoglobin 30.4 pg (25-34); Mean Corpuscular Hgb Conc 33.8 g/dL (32-36); Mean Corpuscular Volume 89.9 fL (80-100); Mean Platelet Volume 9.9 fL (7.4-10.4); Platelet Count 221 K/uL (130-400); RDW Coefficient of Variation 14.1 % (11.5-14.5); RDW Standard Deviation 46.4 fL (36.4-46.3); Red Blood Count 4.15 M/uL (4.2-5.4); White Blood Count 8.63 K/uL (4.8-10.8)
[2021-01-07 05:07] LABS: Albumin Level 2.7 gm/dl (3.4-5.0); Calcium 7.6 mg/dl (8.5-10.1); Creatinine Clr Calc Pharmacy 143.6 ml/min; Est GFR (African American) 128.1 ml/min; Est GFR (Non-African American) 110.6 ml/min; Potassium 3.6 mmol/L (3.5-5.1)
[2021-01-07 05:10] LABS: Albumin Globulin Ratio 0.8 (0.9-2); Bilirubin,Total 0.8 mg/dl (0.2-1); Globulin 3.2 gm/dl (2.5-4.0); Total Protein 5.9 gm/dl (6.4-8.2)
[2021-01-07] MEDS: CIPROFLOXACIN / D5W 400 MG/200 ML BAG IV SCH ×2 (07:57→19:25)
--- NOTE | 2021-01-07 08:33 | Electrocardiogram Report ---
Test Reason : Blood Pressure : / mmHG Vent. Rate : 081 BPM Atrial Rate : 081 BPM P-R Int : 192 ms QRS Dur : 088 ms QT Int : 390 ms P-R-T Axes : 069 -13 017 degrees QTc Int : 453 ms Normal sinus rhythm Normal ECG No previous ECGs available Confirmed by Bora Trivedi ([id number]) on 01/07/2021 8:33:18 AM Referred By: REFERRED SELF Confirmed By:Bora Trivedi
[2021-01-07] MEDS ORDERED: HYDROmorphone INJ 1 MG/ML SYRINGE IV PRN (09:21)
[2021-01-07] MEDS ORDERED: ATROPINE SULFATE 0.1 MG/ML 10ML SYR IV PRN (09:21)
[2021-01-07] MEDS ORDERED: fentaNYL citrate 100 MCG/2 ML VIAL IV PRN (09:21)
[2021-01-07] MEDS ORDERED: ePHEDrine sulfate 50 MG/ML AMP IV PRN (09:21)
[2021-01-07] MEDS ORDERED: ONDANSETRON INJ 2 MG/ML 2 ML VIAL IV PRN (09:21)
--- NOTE | 2021-01-07 09:24 | Anesthesiology Consultation ---
Date of Service January 07, 2021 Assessment & Plan (1) Encounter for pre-operative examination: Chart Review Chart Review: Acceptable Risk for Surgery and Patient NOT seen in Pre Admission Testing Consults Requested none History Surgery Operation Date: 01/07/21 10:00 Proposed Procedures p Colonoscopy - Higinio Salazar MD Height/Weight Height: 5 ft 7 in Weight: 83.8 kg Allergies Allergy/AdvReac Type Severity Reaction Status Date / Time cefuroxime [From Ceftin] Allergy Hives Verified 01/06/21 14:44 Iodinated Contrast Media Allergy Foot Verified 01/06/21 14:44 [Iodinated Contrast- Oral swelling and IV Dye] levothyroxine AdvReac Unknown NEEDS Verified 01/06/21 14:44 BRAND NAME Medications Home Medications Medication Instructions Recorded Confirmed Last Taken aspirin 81 mg tablet,delayed 81 mg PO DAILY tab 04/13/19 01/06/21 01/02/21 release cyanocobalamin (vitamin B-12) 1,000 mcg IM MONTHLY ml 04/13/19 01/06/21 01/02/21 1,000 mcg/mL injection solution cranberry 1,000 mg PO QAM 01/06/21 01/06/21 01/06/21 ibuprofen [Motrin] 600 mg PO Q6H PRN 01/06/21 01/06/21 01/06/21 06:00 600 mg levothyroxine 137 mcg PO DAILY 01/06/21 01/06/21 Unknown tramadol 50 mg PO DIRECTED PRN 01/06/21 01/06/21 01/05/21 21:00 50 mg Active Medications Generic Name Dose Route Start Last Admin Trade Name Neil PRN Reason Stop Dose Admin Pantoprazole Sodium 40 mg/ 100 mls @ 20 mls/hr 01/06/21 15:51 01/07/21 06:23 Dextrose IV 02/05/21 15:50 8 mg/hr Q5H RENETTA 20 mls/hr Administration 8 MG/HR Ciprofloxacin 400 mg in 200 mls @ 100 mls/hr 01/06/21 16:30 01/07/21 09:51 Cipro / D5w IV 01/16/21 16:29 Infused Q12H RENETTA Infusion Protocol Metronidazole 500 mg in 100 mls @ 100 mls/hr 01/06/21 16:30 01/07/21 05:25 Flagyl IV 01/16/21 16:29 Infused Q8H RENETTA Infusion Dextrose/Sodium Chloride 1,000 mls @ 125 mls/hr 01/06/21 19:00 01/07/21 05:25 D5w And Nss IV 02/05/21 18:59 125 mls/hr .Q8H RENETTA Administration Levothyroxine Sodium 137 mcg 01/07/21 06:30 01/07/21 07:58 Levothyroxine Sodium 137 Mcg Tablet PO 02/06/21 06:29 137 mcg DAILYBB RENETTA Administration Past Medical History Medical History Colon polyps Mariella's thyroiditis Papillary carcinoma of thyroid Exercise / Class Metabolic Activity II 4-5 Yardwork/Stairs/Walk up hill Past Surgical History Surgical History History of inguinal hernia repair Past Anesthesia History No Hx of Anesthesia Complications and No Family Hx of Anesthesia Complications History of PONV No Hx of PONV and No Hx of Motion Sickness Social History Smoking Status: Current every day smoker tobacco type: cigarettes Smoking cigarettes per day: 10 Do You Dip or Chew Tobacco: No Hx Alcohol Use: No Hx Substance Use: No Physical Exam Vital Signs Last Vital Signs Temp 37.0 C 01/07/21 07:30 Pulse 74 01/07/21 09:13 Resp 18 01/07/21 09:00 BP 118/69 01/07/21 09:00 Pulse Ox 95 01/07/21 09:00 Testing Laboratory Results 01/07/21 04:13 01/07/21 04:13 PT 9.8 Seconds (9.0-12.0) 01/06/21 12:26 INR 1.0 (0.9-1.1) 01/06/21 12:26 APTT 24.1 Seconds (21.0-31.0) 01/06/21 12:26 Blood Type O Positive 01/06/21 12:26 Antibody Screen NEGATIVE 01/06/21 12:26 Electrocardiogram Date: 01/07/21 DICTATED BY: Bora Trivedi MD Test Reason : Blood Pressure : / mmHG Vent. Rate : 081 BPM Atrial Rate : 081 BPM P-R Int : 192 ms QRS Dur : 088 ms QT Int : 390 ms P-R-T Axes : 069 -13 017 degrees QTc Int : 453 ms Normal sinus rhythm Normal ECG No previous ECGs available Confirmed by Bora Trivedi ([id number]) on 01/07/2021 8:33:18 AM
--- NOTE | 2021-01-07 09:41 | XRay Report ---
XR chest 1V portable CLINICAL HISTORY: Fluid overload COMPARISON STUDY: Chest radiograph January 06, 2021. FINDINGS: Lung volumes are normal. There is no pneumothorax or pleural effusion. Cardiac size is norm al. Right basilar opacity has developed. There is no evidence for pulmonary edema. IMPRESSION: Interval development of mild right basilar opacity. This favors atelectasis although an infectious process could appear similar. ACT 112: Negative or not required by law. Electronically signed by: Jorgito Cates M.D. 01/07/2021 9:40 AM
--- NOTE | 2021-01-07 10:03 | Gastrointestinal Consultation ---
Date of Consultation January 07, 2021 Assessment & Plan (1) Acute GI bleeding: (2) Diverticulitis: diverticulitis with acute GI bleeding and hypotension upon presentation. She has completed a colonoscopy prep overnight. on abx for diverticulitis. hgb remains around 12 despite 2 units PRBC transfusion. Recs: --NPO --complete 10 day course abx for diverticulitis -colonoscopy today to evaluate GI bleed -agree with PPI -supportive care Thank you for allowing me to participate in the care of this patient History of Present Illness Attending Physician: Babs Kay MD 50 yo female here for GI bleed. She has hx recent inguinal hernia repair 01/03/21 at [facility], has hx thyroid cancer as well and B12 deficiency. She notes hematochezia starting yesterday along with abdominal pains, in the ER BP was 53/37, hgb was normal at 12.2. She received IVFs and tranfused 2 units, hgb is currently 12.6 now this morning. Attempts to transfer to [facility] and [place] for IR capabilities were made in the ER but no bed was available. CT A/P showed mild diverticulitis. She had a 1 cm polyp removed on recent colonoscopy and was noted to have diverticulosis, done by Dr. Nguyen. labs reviewed, VSS Allergies Allergy/AdvReac Type Severity Reaction Status Date / Time cefuroxime [From Ceftin] Allergy Hives Verified 01/06/21 14:44 Iodinated Contrast Media Allergy Foot Verified 01/06/21 14:44 [Iodinated Contrast- Oral swelling and IV Dye] levothyroxine AdvReac Unknown NEEDS Verified 01/06/21 14:44 BRAND NAME Home Medications Medication Instructions Recorded Confirmed Type aspirin 81 mg tablet,delayed 81 mg PO DAILY tab 04/13/19 01/06/21 History release cyanocobalamin (vitamin B-12) 1,000 mcg IM MONTHLY ml 04/13/19 01/06/21 History 1,000 mcg/mL injection solution cranberry 1,000 mg PO QAM 01/06/21 01/06/21 History ibuprofen [Motrin] 600 mg PO Q6H PRN 01/06/21 01/06/21 History levothyroxine 137 mcg PO DAILY 01/06/21 01/06/21 History tramadol 50 mg PO DIRECTED PRN 01/06/21 01/06/21 History Patient History Medical History Colon polyps Mariella's thyroiditis Papillary carcinoma of thyroid Surgical History History of inguinal hernia repair Social History Smoking Status: Current every day smoker Cigarettes Per Day: 10; Do You Dip or Chew Tobacco: No; Tobacco Cessation Education Requested by Patient: No Hx Alcohol Use: No Hx Substance Use: No Preferred Language: Honduran Communication Ability: Effective Furniture Assembler Required: No Beliefs That Will Affect Care: None Current Living Situation: Spouse Other Information That Helps Us Care for You: No Feels Safe at Home: Yes Assistive Devices: Denture - Upper Review of Systems Constitutional: no fever, no chills and no weight loss Eyes: as per Subjective / HPI Ear, Nose, Mouth, Throat: as per Subjective / HPI Respiratory: no dyspnea and no dyspnea on exertion Cardiovascular: no chest pain and no palpitations Gastrointestinal: as per Subjective / HPI Musculoskeletal: no joint pain and no swelling Integumentary: no rash and no lesions Neurologic: no numbness and no paresthesia Psychiatric: no depression and no anxiety Endocrine: no fatigue Hematologic / Lymphatic: no easy bleeding and no easy bruising Physical Exam Constitutional: WD/WN, vitals as above Eyes: EOM intact bilaterally Neck: normal visual inspection Respiratory: normal respiratory effort, lungs clear to auscultation Cardiovascular: RRR, no murmur, no edema Gastrointestinal (Abdomen): Inspection/Auscultation: abdomen normal to inspection; abdomen not distended Percussion/Palpation: abdomen soft; abdomen nontender and no hepatosplenomegaly Musculoskeletal: Extremities: no cyanosis Gait: normal gait Skin: no rashes, warm and dry Neurologic: moves all extremities Psychiatric: A+Ox3, euthymic affect Results & Data ([facility]) Vital Signs (Past 12 Hours) Vital Signs Temp Pulse Pulse Resp BP Pulse Ox 01/07/21 09:13 74 01/07/21 09:00 79 18 118/69 95 01/07/21 08:00 76 114/64 01/07/21 07:30 37.0 C 78 18 106/58 L 93 01/07/21 05:59 73 108/69 01/07/21 04:59 76 114/72 01/07/21 03:59 73 110/69 01/07/21 03:07 36.8 C 77 17 104/70 93 01/07/21 01:59 85 124/74 01/07/21 00:59 76 114/74 01/06/21 23:59 77 109/73 01/06/21 22:59 80 108/72 01/06/21 22:50 36.7 C 81 17 111/70 90 01/06/21 21:59 80 107/69 PG Care Time/CCT Total # of Minutes Spent Total Time Spent with Patient: Total time spent is greater than 50% in coordination of care (as documented) at patient's floor/unit and/or counseling patient: Coding Level of Care Code 10123 Inpt Consult Level 4 Diagnoses Acute GI bleeding K92.2 Diverticulitis K57.92
[2021-01-07 10:18] LABS: Hematocrit (blood only) 37.6 % (37-47); Hemoglobin 12.5 g/dL (12.0-16.0)
[2021-01-07] MEDS ORDERED: ONDANSETRON INJ 2 MG/ML 2 ML VIAL ONE (10:39)
[2021-01-07] MEDS ORDERED: PROPOFOL IV EMULSION 10 MG/ML 20 ML VIAL IV ONE (10:39)
[2021-01-07] MEDS ORDERED: LIDOCAINE 2% 2 ML VIAL/AMP(20MG/ML) INFIL ONE (10:39)
--- NOTE | 2021-01-07 10:43 | GI REPORT ---
Patient Name: Татьяна Bahena Procedure Date: 01/07/2021 9:46 AM Date of : 1970 Admit Type: Inpatient Age: 50 Gender: Female Attending MD: Higinio Salazar MD Procedure: Colonoscopy Providers: Higinio Salazar MD Referring MD: Higinio Salazar MD Indications: Hematochezia Medicines: Monitored Anesthesia Care Complications: No immediate complications. Estimated blood loss: None. Estimated Blood Loss: Estimated blood loss: none. Procedure: Pre-Anesthesia Assessment: - Prior Anticoagulants: The patient has taken no previous anticoagulant or antiplatelet agents. - ASA Grade Assessment: III - A patient with severe systemic disease. After I obtained informed consent, the scope was passed under direct vision. Throughout the procedure, the patient's blood pressure, pulse, and oxygen saturations were monitored continuously. The Scope was introduced through the anus and advanced to the cecum, identified by appendiceal orifice and ileocecal valve. The colonoscopy was performed without difficulty. The patient tolerated the procedure well. The quality of the bowel preparation was fair. Findings: Multiple small and large-mouthed diverticula were found in the sigmoid colon and descending colon. There was no evidence of diverticular bleeding. Non-bleeding external hemorrhoids were found. The hemorrhoids were medium-sized. No evidence of active bleeding nor old blood in the entire colon. Impression: - Preparation of the colon was fair. - Mild diverticulosis in the sigmoid colon and in the descending colon. There was no evidence of diverticular bleeding. - Non-bleeding external hemorrhoids. - No specimens collected. Recommendation: - [facility]. - Advance diet as tolerated today. -protonix 40 mg BID -trend H/H, transfuse prn hgb<7 -complete 10 day course of antibiotics for diverticulitis Higinio Salazar MD 01/07/2021 10:42:42 AM This report has been signed electronically. Note Initiated On: 01/07/2021 9:46 AM Number of Addenda: 0 I attest to the content of the Intraoperative Record and orders documented therein, exceptions below {[id number]}
--- NOTE | 2021-01-07 10:47 | Procedure Note ---
Procedure Note Date of Service January 07, 2021 gi brief procedure note colonoscopy findings: diverticulosis, hemorrhoids, no active bleeding nor old blood throughout entire exam. Recs: diet as tolerated complete 10 day course of abx for diverticulitis protonix 40 mg BID trend H/H rest as per primary team Higinio Salazar MD Gastroenterology Coding
--- NOTE | 2021-01-07 10:49 | Anesthesiology Progress Note ---
Date of Service January 07, 2021 Anesthesia Post Procedure Vital Signs Vital Signs: Temp Pulse Pulse Pulse Resp BP BP 01/07/21 10:42 36.3 C L 74 14 91/51 L 01/07/21 09:13 74 01/07/21 09:00 79 18 118/69 01/07/21 08:00 76 114/64 01/07/21 07:30 37.0 C 78 18 106/58 L 01/07/21 05:59 73 108/69 01/07/21 04:59 76 114/72 01/07/21 03:59 73 110/69 01/07/21 03:07 36.8 C 77 17 104/70 01/07/21 01:59 85 124/74 01/07/21 00:59 76 114/74 01/06/21 23:59 77 109/73 01/06/21 22:59 80 108/72 01/06/21 22:50 36.7 C 81 17 111/70 01/06/21 21:59 80 107/69 01/06/21 20:59 78 109/66 01/06/21 19:59 77 108/69 01/06/21 19:26 37.2 C 77 16 120/75 01/06/21 18:45 36.8 C 76 16 106/67 01/06/21 18:00 36.5 C 76 16 124/62 01/06/21 17:12 37.2 C 78 20 108/72 01/06/21 16:42 36.6 C 80 16 124/76 01/06/21 16:27 36.4 C L 80 16 121/64 01/06/21 16:11 36.6 C 80 18 119/73 01/06/21 15:59 36.6 C 82 16 119/73 01/06/21 14:59 36.7 C 77 16 105/55 L 01/06/21 14:45 78 17 106/71 01/06/21 14:30 73 15 111/64 01/06/21 14:29 36.5 C 72 16 111/64 01/06/21 14:15 76 15 106/71 01/06/21 14:14 36.6 C 76 16 106/71 01/06/21 14:00 80 18 114/63 01/06/21 13:54 73 12 105/74 01/06/21 13:53 36.5 C 75 16 105/74 01/06/21 13:45 74 18 105/63 01/06/21 13:30 73 15 92/53 L 01/06/21 13:15 79 19 101/46 L 01/06/21 13:14 73 17 101/60 01/06/21 12:45 73 16 111/51 L 01/06/21 12:43 37 C 01/06/21 12:39 01/06/21 12:38 77 16 103/51 L 01/06/21 12:16 35.3 C L 73 20 53/37 L Pulse Ox 01/07/21 10:42 93 01/07/21 09:13 01/07/21 09:00 95 01/07/21 08:00 01/07/21 07:30 93 01/07/21 05:59 01/07/21 04:59 01/07/21 03:59 01/07/21 03:07 93 01/07/21 01:59 01/07/21 00:59 01/06/21 23:59 01/06/21 22:59 01/06/21 22:50 90 01/06/21 21:59 01/06/21 20:59 01/06/21 19:59 01/06/21 19:26 90 01/06/21 18:45 90 01/06/21 18:00 98 01/06/21 17:12 93 01/06/21 16:42 96 01/06/21 16:27 98 01/06/21 16:11 94 01/06/21 15:59 98 01/06/21 14:59 95 01/06/21 14:45 92 01/06/21 14:30 98 01/06/21 14:29 98 01/06/21 14:15 94 01/06/21 14:14 96 01/06/21 14:00 90 01/06/21 13:54 98 01/06/21 13:53 98 01/06/21 13:45 100 01/06/21 13:30 97 01/06/21 13:15 97 01/06/21 13:14 97 01/06/21 12:45 94 01/06/21 12:43 01/06/21 12:39 92 01/06/21 12:38 92 01/06/21 12:16 93 Transfer of Care Handoff Completed per policy Notes Mental Status: alert / awake / arousable and participated in evaluation Patient Amnestic to Procedure: Yes Nausea / Vomiting: adequately controlled Pain: adequately controlled Airway Patency, RR, SpO2: stable & adequate BP & HR: stable & adequate Hydration State: stable & adequate Anesthetic Complications: no major complications apparent and Pt Satisfied with anesthetic care
--- NOTE | 2021-01-07 14:14 | Hospitalist Progress Note ---
Date of Service January 07, 2021 Assessment & Plan (1) Acute GI bleeding: -Acute bright red bloody bowel movements x1 day associated with abdominal pain and noted to have very low blood pressure at presentation -Failed attempt to transfer her to tertiary [facility] including [facility] without any success and was advised to have GI evaluation and possible scope to rule out any significant causes -Pt presented to the ER with BP of 50s/30s, received NSS 300 mL and transfused 2 units PRBCs. -Has been getting intravenous Protonix -Received 2 units of blood transfusion and hemoglobin remained stable -Appreciate GI input and recommendation -Status post colonoscopy this afternoon which showed diverticulosis, hemorrhoids, no active bleeding nor old blood throughout the entire chronic examination. -Advised to continue PPI twice daily and trend hemoglobin (2) Diverticulitis: -CT scan of the abdomen pelvis showed-mild acute diverticulitis at the hepatic flexure of the colon no perforation and/or abscess -Start IV cipro/flagyl to treat possible diverticulitis as seen on CT abd/pelvis. -Follow blood cultures-pending -WBC = 13 k, afebrile - Check lactate-normal -Clinically better and will continue antibiotic for 10 days in total (3) History of inguinal hernia repair: - S/p right inguinal hernia repair on 01/03/2021 at [facility] by Dr. Blandon - CT abd reviewed, noted questionable abscess formation, will monitor, antibiotics IV, afebrile, WBC of 13 k can be reactive from acute bleed. -Further management will depend on the surgeon as an outpatient (4) Colon polyps: - Hx of such, removed during colonoscopy done in December 2020. - Dr. Nguyen at [facility] on 12/12/2020. She had a 10 mm polyp in the descending colon which was semipedunculated, removed. A hemostatic clip was placed successfully to prevent further bleeding after the polypectomy. There was no bleeding at the end of this procedure there were multiple small and large mouth diverticula in the sigmoid colon and descending colon. Moderate internal hemorrhoids seen on retroflexion. -No signs of acute bleeding in the colon and no more polyps noted on colonoscopy (5) Hypothyroidism, postablative: - S/p papillary thyroid cancer and ablation DVT ppx: - teds, no chemical anticoagulation secondary to GI bleed as above CODE: Full code Dispo: From home, likely to remain in the hospital x 1-2 days Admission and Anticipated Discharge Date Admission Date: January 06, 2021 Subjective 01/07/2021 The patient was seen and examined in telemetry unit She was admitted with bright red blood per rectum for 1 day with lower right quadrant pain and also noted to be very hypotensive at presentation She is a status post 2 unit of blood transfusion and status post colonoscopy without any evidence of acute bleeding Still complains to have some pain in the right lower quadrant Denies any other symptoms Review of Systems Review of Systems: All systems reviewed and are unremarkable except as noted below Constitutional: + weakness Gastrointestinal: + abdominal pain; no nausea and no vomiting Physical Exam Physical Exam: Lying in bed comfortably Constitutional: well developed, well nourished and + ill appearing Eyes: PERRL, conjunctivae normal, anicteric sclerae ENMT: external ear and nose normal, oropharynx normal Neck: trachea midline, no thyromegaly Respiratory: no respiratory distress Auscultation: lungs clear to auscultation bilaterally Cardiovascular: Rate/Rhythm: regular rate and regular rhythm Heart Sounds: no murmur Extremities: no edema Gastrointestinal (Abdomen): Inspection/Auscultation: normal bowel sounds; abdomen not distended Percussion/Palpation: + abdomen tender (Tender in the right lower quadrant) and abdomen soft Musculoskeletal: No acute arthritis in any joint Neurologic: Alert, awake and oriented x3. Generally weak but no focal sensory and motor deficit appreciated Psychiatric: A+Ox3, euthymic affect Lymphatic: no cervical or axillary lymphadenopathy Results & Data Results & Data ([facility]) Vital Signs (Past 12 Hours) Vital Signs Temp Pulse Pulse Pulse Resp BP Pulse Ox 01/07/21 12:23 73 18 111/70 95 01/07/21 11:24 36.9 C 67 18 112/65 94 01/07/21 11:22 36.9 C 66 18 112/65 93 01/07/21 11:06 36.8 C 71 18 94/60 L 94 01/07/21 11:00 36.3 C L 81 14 108/51 L 93 01/07/21 10:50 81 14 101/58 L 93 01/07/21 10:42 36.3 C L 74 14 91/51 L 93 01/07/21 09:13 74 01/07/21 09:00 79 18 118/69 95 01/07/21 08:00 76 114/64 01/07/21 07:30 37.0 C 78 18 106/58 L 93 01/07/21 05:59 73 108/69 01/07/21 04:59 76 114/72 01/07/21 03:59 73 110/69 01/07/21 03:07 36.8 C 77 17 104/70 93 Laboratory Results Short CBC 01/06/21 01/07/21 01/07/21 Range/Units 20:51 04:13 09:59 WBC 8.63 (4.8-10.8) K/uL Hgb 13.6 12.6 12.5 (12.0-16.0) g/dL Hct 40.9 37.3 37.6 (37-47) % Plt Count 221 (130-400) K/uL BMP 01/07/21 04:13 Sodium 142 Potassium 3.6 Chloride 111 H Carbon Dioxide 29 BUN 6 L Creatinine 0.51 L Glucose 107 H Calcium 7.6 L Liver Function 01/07/21 Range/Units 04:13 Total Bilirubin 0.8 (0.2-1) mg/dl AST 12 L (15-37) U/L ALT 13 (12-78) U/L Alkaline Phosphatase 52 (45-117) U/L Albumin 2.7 L (3.4-5.0) gm/dl Diagnostic Findings CT of the abdomen and pelvis: IMPRESSION: 1. Mild acute diverticulitis at the hepatic flexure of the colon. No perforation or abscess. 2. There are 2 adjacent focal collections of gas and soft tissue edema/fluid within the right lower quadrant extraperitoneal space proximal to the site of right inguinal hernia repair. These measure approximately 3.2 cm. Both of these gas and soft tissue collections abut the undersurface of the cecum and adjacent distal ileal loops. These favor postoperative change from the recent right inguinal hernia repair. However, developing abscesses or less likely enterocutaneous fistulas or microperforation with the adjacent bowel loops could also have a similar appearance. Consider one month abdomen and pelvis CT follow- up to ensure resolution. 3. There is a small amount of fluid, gas, and fat stranding within the subcutaneous right inguinal region also suggesting postoperative change from the recent hernia repair. 4. A 5 mm indeterminate pulmonary nodule within the left lower lobe. Please re georgi to the chart below for recommended follow-up. 5. Small patchy groundglass densities within the base of the left lower lobe suggesting a resolving pneumonitis. This could be secondary to aspiration. Medications Administered Current Inpatient Medications Ciprofloxacin (Cipro / D5w) 400 mg in 200 mls @ 100 mls/hr IV Q12H [facility]; Protocol Stop: 01/16/21 16:29 Last Infusion: 01/07/21 09:51 Dose: Infused Documented by: Metronidazole (Flagyl) 500 mg in 100 mls @ 100 mls/hr IV Q8H [facility] Stop: 01/16/21 16:29 Last Infusion: 01/07/21 12:46 Dose: Infused Documented by: Dextrose/Sodium Chloride (D5w And Nss) 1,000 mls @ 125 mls/hr IV .Q8H [facility] Stop: 02/05/21 18:59 Last Admin: 01/07/21 14:02 Dose: 125 mls/hr Documented by: Levothyroxine Sodium (Levothyroxine Sodium 137 Mcg Tablet) 137 mcg PO DAILYBB [facility] Stop: 02/06/21 06:29 Last Admin: 01/07/21 07:58 Dose: 137 mcg Documented by: Ondansetron HCl (Ondansetron Inj 2 Mg/Ml 2 Ml Vial) 4 mg IV Q4H PRN PRN Reason: Nausea And Vomiting Stop: 02/05/21 18:51 Pantoprazole Sodium (Pantoprazole 40 Mg Tab) 40 mg PO BID [facility] Stop: 02/06/21 20:59
[2021-01-07 16:19] LABS: Hematocrit (blood only) 36.2 % (37-47); Hemoglobin 11.9 g/dL (12.0-16.0)
[2021-01-07] MEDS: PANTOprazole 40 MG TAB PO SCH (19:26)
[2021-01-07 22:35] LABS: Hematocrit (blood only) 36.6 % (37-47); Hemoglobin 11.9 g/dL (12.0-16.0)
[2021-01-08] MEDS: metroNIDAZOLE 500 MG/100 ML BAG IV SCH (03:49)
[2021-01-08] MEDS: LEVOTHYROXINE SODIUM 137 MCG TABLET PO SCH (05:54)
[2021-01-08 06:32] LABS: Basophils # (auto) 0.02 K/uL (0-0.2); Basophils % (auto) 0.2 %; Eosinophils # (auto) 0.18 K/uL (0-0.5); Eosinophils % (auto) 2.2 %; Hematocrit (blood only) 37.2 % (37-47); Hemoglobin 12.2 g/dL (12.0-16.0); Immature Granulocytes # (auto) 0.04 K/uL (0.00-0.02); Immature Granulocytes % (auto) 0.5 %; Lymphocytes # (auto) 2.16 K/uL (1.2-3.4); Lymphocytes % (auto) 26.2 %; Mean Corpuscular Hemoglobin 30.3 pg (25-34); Mean Corpuscular Hgb Conc 32.8 g/dL (32-36); Mean Corpuscular Volume 92.3 fL (80-100); Mean Platelet Volume 9.9 fL (7.4-10.4); Monocytes # (auto) 0.68 K/uL (0.11-0.59); Monocytes % (auto) 8.2 %; Neutrophils # (auto) 5.18 K/uL (1.4-6.5); Neutrophils % (auto) 62.7 %; Platelet Count 238 K/uL (130-400); RDW Standard Deviation 47.4 fL (36.4-46.3); Red Blood Count 4.03 M/uL (4.2-5.4); White Blood Count 8.26 K/uL (4.8-10.8)
[2021-01-08 07:11] LABS: Albumin Level 2.7 gm/dl (3.4-5.0); BUN Creatinine Ratio 8.4 (10-20); Calcium 7.7 mg/dl (8.5-10.1); Creatinine Clr Calc Pharmacy 145.4 ml/min; Est GFR (Non-African American) 111.3 ml/min; Potassium 3.5 mmol/L (3.5-5.1)
[2021-01-08 07:14] LABS: Albumin Globulin Ratio 0.8 (0.9-2); Bilirubin,Total 0.6 mg/dl (0.2-1); Globulin 3.3 gm/dl (2.5-4.0)
[2021-01-08] MEDS: PANTOprazole 40 MG TAB PO SCH (08:11)
[2021-01-08] MEDS: CIPROFLOXACIN / D5W 400 MG/200 ML BAG IV SCH (08:11)
--- NOTE | 2021-01-08 09:02 | Gastroenterology Progress Note ---
Date of Service January 08, 2021 Assessment & Plan (1) Diverticulitis: 50 year old female admitted w/ pain, rectal bleeding, CTAP concerning for diverticulitis who underwent colonoscopy over the weekend by Dr. Salazar for rectal bleeding w/o evidence of acute blood loss, clinically improving, VSS w/ stable HGB Low residue diet as tolerated for 4 weeks then high fiber indefinite Complete a full 10 day course of abx for diverticulitis Protonix 40 mg BID Trend H/H GI will sign off. Recall as needed (2) Acute GI bleeding: Admission and Anticipated Discharge Date Admission Date: January 06, 2021 Supervising Physician Co-Signing Physician Notes I have discussed the patient's management with the advanced practitioner. Please refer to the nurse practitioner's note for the documented findings and plan of care. Subjective Feeling better. No further blood BMs. Abd pain is improving. No nausea, vom iting. No fever, chills, CP, SOB. Review of Systems Review of Systems: All systems reviewed & are unremarkable except as noted in HPI & below Physical Exam Constitutional: well developed and well nourished; no acute distress and not ill appearing Neck: trachea midline, no thyromegaly Respiratory: normal respiratory effort, lungs clear to auscultation Cardiovascular: RRR, no murmur, no edema Gastrointestinal (Abdomen): normal bowel sounds, soft, nontender, no hepatosplenomegaly Results & Data ([facility]) Vital Signs (Past 12 Hours) Vital Signs Temp Pulse Pulse Pulse Resp BP Pulse Ox 01/08/21 07:40 73 01/08/21 07:27 36.8 C 78 17 128/75 91 01/08/21 02:44 36.4 C L 80 18 106/67 92 01/07/21 23:05 36.8 C 73 18 110/66 93 Laboratory Results 01/08/21 01/08/21 01/07/21 Range/Units 05:33 05:33 22:22 WBC 8.26 (4.8-10.8) K/uL RBC 4.03 L (4.2-5.4) M/uL Hgb 12.2 11.9 L (12.0-16.0) g/dL Hct 37.2 36.6 L (37-47) % MCV 92.3 (80-100) fL MCH 30.3 (25-34) pg MCHC 32.8 (32-36) g/dL RDW Std Deviation 47.4 H (36.4-46.3) fL RDW Coeff of Den 14.0 (11.5-14.5) % Plt Count 238 (130-400) K/uL MPV 9.9 (7.4-10.4) fL Immature Gran % (Auto) 0.5 % Neut % (Auto) 62.7 % Lymph % (Auto) 26.2 % [place] % (Auto) 8.2 % Eos % (Auto) 2.2 % Baso % (Auto) 0.2 % Neut # (Auto) 5.18 (1.4-6.5) K/uL Lymph # (Auto) 2.16 (1.2-3.4) K/uL [place] # (Auto) 0.68 H (0.11-0.59) K/uL Eos # (Auto) 0.18 (0-0.5) K/uL Baso # (Auto) 0.02 (0-0.2) K/uL Immature Gran # (Auto) 0.04 H (0.00-0.02) K/uL Sodium 143 (136-145) mmol/L Potassium 3.5 (3.5-5.1) mmol/L Chloride 110 H (98-107) mmol/L Carbon Dioxide 28 (21-32) mmol/L Anion Gap 5.0 (3-11) BUN 4 L (7-18) mg/dl Creatinine 0.50 L (0.6-1.2) mg/dl Est Cr Clr Drug Dosing 145.4 ml/min Est GFR ( Amer) 129.0 ml/min Est GFR (Non-Af Amer) 111.3 ml/min BUN/Creatinine Ratio 8.4 L (10-20) Glucose 88 (70-99) mg/dl Calcium 7.7 L (8.5-10.1) mg/dl Total Bilirubin 0.6 (0.2-1) mg/dl AST 10 L (15-37) U/L ALT 12 (12-78) U/L Alkaline Phosphatase 48 (45-117) U/L Total Protein 6.0 L (6.4-8.2) gm/dl Albumin 2.7 L (3.4-5.0) gm/dl Globulin 3.3 (2.5-4.0) gm/dl Albumin/Globulin Ratio 0.8 L (0.9-2) 01/07/21 01/07/21 Range/Units 16:11 09:59 WBC (4.8-10.8) K/uL RBC (4.2-5.4) M/uL Hgb 11.9 L 12.5 (12.0-16.0) g/dL Hct 36.2 L 37.6 (37-47) % MCV (80-100) fL MCH (25-34) pg MCHC (32-36) g/dL RDW Std Deviation (36.4-46.3) fL RDW Coeff of Den (11.5-14.5) % Plt Count (130-400) K/uL MPV (7.4-10.4) fL Immature Gran % (Auto) % Neut % (Auto) % Lymph % (Auto) % [place] % (Auto) % Eos % (Auto) % Baso % (Auto) % Neut # (Auto) (1.4-6.5) K/uL Lymph # (Auto) (1.2-3.4) K/uL [place] # (Auto) (0.11-0.59) K/uL Eos # (Auto) (0-0.5) K/uL Baso # (Auto) (0-0.2) K/uL Immature Gran # (Auto) (0.00-0.02) K/uL Sodium (136-145) mmol/L Potassium (3.5-5.1) mmol/L Chloride (98-107) mmol/L Carbon Dioxide (21-32) mmol/L Anion Gap (3-11) BUN (7-18) mg/dl Creatinine (0.6-1.2) mg/dl Est Cr Clr Drug Dosing ml/min Est GFR ( Amer) ml/min Est GFR (Non-Af Amer) ml/min BUN/Creatinine Ratio (10-20) Glucose (70-99) mg/dl Calcium (8.5-10.1) mg/dl Total Bilirubin (0.2-1) mg/dl AST (15-37) U/L ALT (12-78) U/L Alkaline Phosphatase (45-117) U/L Total Protein (6.4-8.2) gm/dl Albumin (3.4-5.0) gm/dl Globulin (2.5-4.0) gm/dl Albumin/Globulin Ratio (0.9-2)
--- NOTE | 2021-01-08 11:03 | Hospitalist Progress Note ---
Date of Service January 08, 2021 Assessment & Plan (1) Acute GI bleeding: -Acute bright red bloody bowel movements x1 day associated with abdominal pain and noted to have very low blood pressure at presentation -Failed attempt to transfer her to tertiary [facility] including [facility] without any success and was advised to have GI evaluation and possible scope to rule out any significant causes -Pt presented to the ER with BP of 50s/30s, received NSS 300 mL and transfused 2 units PRBCs. -Has been getting intravenous Protonix -Received 2 units of blood transfusion and hemoglobin remained stable -Appreciate GI input and recommendation-low fiber diet for 4 weeks and then full fiber diet -Status post colonoscopy this afternoon which showed diverticulosis, hemorrhoids, no active bleeding nor old blood throughout the entire chronic examination. -Advised to continue PPI twice daily and trend hemoglobin -Hemoglobin remains stable at more than 12 and no more rectal bleeding -She will be discharged home this afternoon (2) Diverticulitis: -CT scan of the abdomen pelvis showed-mild acute diverticulitis at the hepatic flexure of the colon no perforation and/or abscess -Start IV cipro/flagyl to treat possible diverticulitis as seen on CT abd/pelvis. -Follow blood cultures-pending -WBC = 13 k, afebrile - Check lactate-normal -Clinically better and will continue antibiotic for 10 days in total -Still has some pain in the right lower quadrant but improved -No signs of ongoing infection (3) History of inguinal hernia repair: - S/p right inguinal hernia repair on 01/03/2021 at [facility] by Dr. Blandon - CT abd reviewed, noted questionable abscess formation, will monitor, antibiotics IV, afebrile, WBC of 13 k can be reactive from acute bleed. -Further management will depend on the surgeon as an outpatient (4) Colon polyps: - Hx of such, removed during colonoscopy done in December 2020. - Dr. Nguyen at [facility] on 12/12/2020. She had a 10 mm polyp in the descending colon which was semipedunculated, removed. A hemostatic clip was placed successfully to prevent further bleeding after the polypectomy. There was no bleeding at the end of this procedure there were multiple small and large mouth diverticula in the sigmoid colon and descending colon. Moderate internal hemorrhoids seen on retroflexion. -No signs of acute bleeding in the colon and no more polyps noted on colonoscopy (5) Hypothyroidism, postablative: - S/p papillary thyroid cancer and ablation DVT ppx: - teds, no chemical anticoagulation secondary to GI bleed as above CODE: Full code Dispo: Discharge home this afternoon. Admission and Anticipated Discharge Date Admission Date: January 06, 2021 Subjective 01/07/2021 The patient was seen and examined in telemetry unit She was admitted with bright red blood per rectum for 1 day with lower right quadrant pain and also noted to be very hypotensive at presentation She is a status post 2 unit of blood transfusion and status post colonoscopy without any evidence of acute bleeding Still complains to have some pain in the right lower quadrant Denies any other symptoms 01/08/2021 The patient was seen and examined in telemetry unit She is out of bed on a chair without any acute distress Denies any more rectal bleeding and her weakness is improved She has had PT and OT evaluation and recommended to go home Review of Systems Review of Systems: All systems reviewed and are unremarkable except as noted below Constitutional: + weakness Gastrointestinal: + abdominal pain; no nausea and no vomiting Physical Exam Physical Exam: Sitting on a chair without any acute distress Constitutional: well developed, well nourished and + ill appearing Eyes: PERRL, conjunctivae normal, anicteric sclerae ENMT: external ear and nose normal, oropharynx normal Neck: trachea midline, no thyromegaly Respiratory: no respiratory distress Auscultation: lungs clear to auscultation bilaterally Cardiovascular: Rate/Rhythm: regular rate and regular rhythm Heart Sounds: no murmur Extremities: no edema Gastrointestinal (Abdomen): Inspection/Auscultation: normal bowel sounds; abdomen not distended Percussion/Palpation: + abdomen tender (Tender in the right lower quadrant) and abdomen soft Neurologic: Alert, awake and oriented x3. Generally weak but no focal sensory and motor deficit appreciated Psychiatric: A+Ox3, euthymic affect Lymphatic: no cervical or axillary lymphadenopathy Results & Data Results & Data ([facility]) Vital Signs (Past 12 Hours) Vital Signs Temp Pulse Pulse Pulse Resp BP Pulse Ox 01/08/21 07:40 73 01/08/21 07:27 36.8 C 78 17 128/75 91 01/08/21 02:44 36.4 C L 80 18 106/67 92 01/07/21 23:05 36.8 C 73 18 110/66 93 Laboratory Results Short CBC 01/07/21 01/07/21 01/08/21 Range/Units 16:11 22:22 05:33 WBC 8.26 (4.8-10.8) K/uL Hgb 11.9 L 11.9 L 12.2 (12.0-16.0) g/dL Hct 36.2 L 36.6 L 37.2 (37-47) % Plt Count 238 (130-400) K/uL BMP 01/08/21 05:33 Sodium 143 Potassium 3.5 Chloride 110 H Carbon Dioxide 28 BUN 4 L Creatinine 0.50 L Glucose 88 Calcium 7.7 L Liver Function 01/08/21 Range/Units 05:33 Total Bilirubin 0.6 (0.2-1) mg/dl AST 10 L (15-37) U/L ALT 12 (12-78) U/L Alkaline Phosphatase 48 (45-117) U/L Albumin 2.7 L (3.4-5.0) gm/dl Medications Administered Current Inpatient Medications Ciprofloxacin (Ciprofloxacin 500 Mg Tab) 500 mg PO BID [facility] Stop: 01/16/21 20:59 Levothyroxine Sodium (Levothyroxine Sodium 137 Mcg Tablet) 137 mcg PO DAILYBB [facility] Stop: 02/06/21 06:29 Last Admin: 01/08/21 05:54 Dose: 137 mcg Documented by: Metronidazole (Metronidazole 500 Mg Tab) 500 mg PO BID [facility] Stop: 01/18/21 11:59 Ondansetron HCl (Ondansetron Inj 2 Mg/Ml 2 Ml Vial) 4 mg IV Q4H PRN PRN Reason: Nausea And Vomiting Stop: 02/05/21 18:51 Pantoprazole Sodium (Pantoprazole 40 Mg Tab) 40 mg PO BID [facility] Stop: 02/06/21 20:59 Last Admin: 01/08/21 08:11 Dose: 40 mg Documented by:
[2021-01-08] MEDS ORDERED: metroNIDAZOLE 500 MG TAB PO SCH (12:00)
[2021-01-08] MEDS ORDERED: CIPROFLOXACIN 500 MG TAB PO SCH (21:00)
--- NOTE | 2021-01-09 08:48 | Discharge Summary ---
Date of Service January 09, 2021 Admission HPI Per Admitting Provider This is a 50 yo F with PMhx of recent right inguinal hernia repair on 01/03/2021 at [facility] by JOVANNA Jamison, status post papillary thyroid carcinoma with postoperative hypothyroidism, pernicious anemia, factor V Leiden carrier, B12 deficiency who presents to the ER with acute GI bleed. Patient with significant bright red blood per rectum and bowel movements started today. She had been having increased abdominal pain associated with the bleeding. Pt had been using tylenol and tramadol immediately after her hernia surgery this past week. After tramadol ran out, she was then given a prescription for motrin 600 mg Q6H prn for pain. Upon presentation to the ER she had a blood pressure 53/37, but this was with standing up, otherwise her blood pressure has remained 105/70. She received NSS 300 mL and is being transfused 2 units PRBCs. Heart rate has remained in the 70s. Once in the ER, her acute bleeding prompted possible transfer to [facility] for possible IR procedure. The case was discussed between the ER physician at [facility] and Dr. Ttutle at [facility] and unfortunately there is not a bed available for the patient there, and they would have requested a colonoscopy prior to an IR procedure. Patient does have diverticulitis as seen on her CT abdominal scan here at [facility], so again was asked if she could be transferred to [facility] [place] due to unlikely ability to perform full colonoscopy, Dr. Tuttle has requested that we keep the patient in had GI attempt to perform a flexible sigmoidoscopy and stabilize the patient. [facility] was also contacted for possible transfer but they do not have any beds available either and have more than 70 people in their ER waiting room. She recently had a colonoscopy done by Dr. Nguyen at [facility] on 12/12/2020. She had a 10 mm polyp in the descending colon which was semipedunculated, removed. A hemostatic clip was placed successfully to prevent further bleeding after the polypectomy. There was no bleeding at the end of this procedure there were multiple small and large mouth diverticula in the sigmoid colon and descending colon. Moderate internal hemorrhoids seen on retroflexion. Admission Exam Per Admitting Provider Physical Exam: Please see attending PE. Constitutional: well developed, well nourished and comfortable Eyes: PERRL and reactive pupils Neck: normal visual inspection and trachea midline Respiratory: normal respiratory effort, lungs clear to auscultation Cardiovascular: Rate/Rhythm: regular rate and regular rhythm Heart Sounds: normal S1 and normal S2 Gastrointestinal (Abdomen): Inspection/Auscultation: abdomen normal to inspection and normal bowel sounds Percussion/Palpation: abdomen soft Right i nguinal hernia repair site healing ok. No obvious erythema or drainage seen. Principal Diagnosis Acute lower GI bleed, unremarkable colonoscopy, acute diverticulitis Discharge Exam Constitutional well developed, well nourished and + ill appearing Eyes PERRL, conjunctivae normal, anicteric sclerae ENMT external ear and nose normal, oropharynx normal Neck trachea midline, no thyromegaly Respiratory no respiratory distress Auscultation: lungs clear to auscultation bilaterally Cardiovascular Rate/Rhythm: regular rate and regular rhythm Heart Sounds: no murmur Extremities: no edema Gastrointestinal (Abdomen) Inspection/Auscultation: normal bowel sounds; abdomen not distended Percussion/Palpation: + abdomen tender (Tender in the right lower quadrant) and abdomen soft Psychiatric A+Ox3, euthymic affect Lymphatic no cervical or axillary lymphadenopathy Discharge Data Allergies Allergy/AdvReac Type Severity Reaction Status Date / Time cefuroxime [From Ceftin] Allergy Hives Verified 01/06/21 14:44 Iodinated Contrast Media Allergy Foot Verified 01/06/21 14:44 [Iodinated Contrast- Oral swelling and IV Dye] levothyroxine AdvReac Unknown NEEDS Verified 01/06/21 14:44 BRAND NAME Consultations 01/06/21 15:10 ED Decision to Admit Stat 01/06/21 16:25 Consult Gastroenterology Routine Procedures Performed Operation Date: 01/07/21 10:00 Actual Procedures p Colonoscopy - Higinio Salazar MD Ordered Studies 01/06/21 12:35 CT abd pelvis wo con Stat Hospital Course (1) Acute GI bleeding: -Acute bright red bloody bowel movements x1 day associated with abdominal pain and noted to have very low blood pressure at presentation -Failed attempt to transfer her to tertiary Medical Center [facility] without any success and was advised to have GI evaluation and possible scope to rule out any significant causes -Pt presented to the ER with BP of 50s/30s, received NSS 300 mL and transfused 2 units PRBCs. -Has been getting intravenous Protonix -Received 2 units of blood transfusion and hemoglobin remained stable -Appreciate GI input and recommendation-low fiber diet for 4 weeks and then full fiber diet -Status post colonoscopy this afternoon which showed diverticulosis, hemorrhoids, no active bleeding nor old blood throughout the entire chronic examination. -Advised to continue PPI twice daily and trend hemoglobin -Hemoglobin remains stable at more than 12 and no more rectal bleeding -She will be discharged home this afternoon (2) Diverticulitis: -CT scan of the abdomen pelvis showed-mild acute diverticulitis at the hepatic flexure of the colon no perforation and/or abscess -Start IV cipro/flagyl to treat possible diverticulitis as seen on CT abd/pelvis. -Follow blood cultures-pending -WBC = 13 k, afebrile - Check lactate-normal -Clinically better and will continue antibiotic for 10 days in total -Still has some pain in the right lower quadrant but improved -No signs of ongoing infection (3) History of inguinal hernia repair: - S/p right inguinal hernia repair on 01/03/2021 at [facility] by Dr. Blandon - CT abd reviewed, noted questionable abscess formation, will monitor, antibiotics IV, afebrile, WBC of 13 k can be reactive from acute bleed. -Further management will depend on the surgeon as an outpatient (4) Colon polyps: - Hx of such, removed during colonoscopy done in December 2020. - Dr. Nguyen at [facility] on 12/12/2020. She had a 10 mm polyp in the descen ding colon which was semipedunculated, removed. A hemostatic clip was placed successfully to prevent further bleeding after the polypectomy. There was no bleeding at the end of this procedure there were multiple small and large mouth diverticula in the sigmoid colon and descending colon. Moderate internal hemorrhoids seen on retroflexion. -No signs of acute bleeding in the colon and no more polyps noted on colonoscopy (5) Hypothyroidism, postablative: - S/p papillary thyroid cancer and ablation DVT ppx: - teds, no chemical anticoagulation secondary to GI bleed as above CODE: Full code Dispo: Discharge home this afternoon. Total Time Total Time Spent Total Time Spent (In Minutes): 45 minutes Total Time Includes: Examination of the Patient, Discharge Planning, Medication Reconciliation and Communication With Other Providers Discharge Plan Discharge Items Patient Disposition: Home - Self-Care Reason For Visit: ACUTE GI BLEED Discharge Diagnosis: Acute lower GI bleed, unremarkable colonoscopy, acute diverticulitis Condition on Discharge: Fair Activity: Resume your previous activity Non-emergency contact: Primary Care Provider Call non-emergency contact if: you have any medication questions and your symptoms worsen Follow-up/Referrals: Flaquito Solis MD [Primary Care Provider] - (Date & Time 01/11/2021 11:20 AM Provider Flaquito Solis MD Department Family Medicine [facility] ) Diet: Regular Diet Comment: Low fiber diet for 4 weeks and following that full fiber diet Addtl Attending Provider Instructions: Please take precautions to avoid fall Take your medications as directed Do not use any aspirin and/or NSAIDs other than prescribed Pending Studies at Discharge: No Stand-Alone Forms: [facility] [employer], Work/School Release, Smoking Cessation Medications and DC Order Prescriptions: New ciprofloxacin HCl 500 mg Tablet 500 mg PO BID Qty: 14 RF: 0 metronidazole 500 mg Tablet 500 mg PO BID Qty: 14 RF: 0 pantoprazole 40 mg Tablet,Delayed Release (Dr/Ec) 40 mg PO BID Qty: 60 RF: 0 Lactinex 1 million cell tablet,chewable 1 tab PO BID Qty: 30 RF: 0 Continued aspirin 81 mg tablet,delayed release (DR/EC) 81 mg PO DAILY RF: 0 cyanocobalamin (vitamin B-12) 1,000 mcg/mL solution 1,000 mcg IM MONTHLY RF: 0 tramadol 50 mg tablet 50 mg PO DIRECTED PRN (Reason: Pain) RF: 0 cranberry 500 mg Capsule 1,000 mg PO QAM RF: 0 levothyroxine 137 mcg tablet 137 mcg PO DAILY RF: 0 Discontinued ibuprofen [Motrin] 600 mg Tablet 600 mg PO Q6H PRN (Reason: Pain) RF: 0 Discharge Orders: Discharge Order (Routine); Ordered 01/08/21 Ordered By: Babs Kay Admission Data Admit Date/Time: 01/06/21 16:25 Attending Provider: Babs Kay Admit Provider: Andrew Raines Primary Care Provider: Flaquito Solis Other Providers: Andrew Raines ; Higinio Salazar Other Interventions: Discharge Summary Assessment (RN) Last Done: 01/08/21 12:56
== END 2021-01-08 14:07 | disposition home or self-care (01) | DRG 379 ==
LOC: ED 12:14 → SUATTDRO 16:25 → 2S 16:25